=== PATIENT | male | born 1935 | race Caucasian/White ===

== ENCOUNTER 2021-09-30 17:05 | Inpatient (IN) ==
[2021-09-30] MEDS ORDERED: ONDANSETRON 4 MG/2 ML VIAL IV ONE (17:48)
[2021-09-30] MEDS ORDERED: MORPHINE 2 MG/1 ML SYRINGE IV ONE (17:48)
[2021-09-30] MEDS ORDERED: HYDROmorphone 1 MG/1 ML SYRINGE IV STA (19:14)
[2021-09-30 19:46] LABS: Basophils % 0.2 % (0.0-0.8); Eosinophils # 0.1 10*3/uL (0.0-0.87); Eosinophils % 0.8 % (0.00-10.9); Hematocrit 28.9 VOL% (42.0-52.0); Hemoglobin 9.3 GM/DL (14.0-18.0); Immature Granulocytes % 0.6 %; Immature Granulocytes Absolute 0.05 #; Lymphocytes # 1.4 10*3/uL (1.4-4.0); Lymphocytes % 15.6 % (21.2-54.2); Mean Corpuscular HGB Conc 32.2 GM/DL (32-36); Mean Corpuscular Volume 93.2 FL (87-102); Mean Platelet Volume 9.8 FL (9.6-12.0); Monocytes # 0.7 10*3/uL (0.11-0.8); Monocytes % 7.4 % (1.7-12.7); Neutrophils % 75.4 % (38.7-73.9); Platelet Count 178 T/CUMM (130-400); Red Cell Distribution Width 13.9 % (9.3-17.3); White Blood Count 8.8 T/CUMM (4-12)
[2021-09-30 19:56] LABS: INR 2.8; PT Patient Result 29.2 SECS (10.1-12.1)
[2021-09-30 20:07] LABS: Albumin 3.6 G/DL (3.4-5.0); Bilirubin,Total 0.5 MG/DL (0.20-1.00); Calcium 8.8 MG/DL (8.5-10.1); Osmolality,Calculated 277.5 MOS/KG (273-304); Potassium 3.9 MMOL/L (3.5-5.1); Total Protein 7.3 G/DL (6.4-8.2)
[2021-09-30] MEDS ORDERED: HYDROmorphone 1 MG/1 ML SYRINGE IV PRN (20:21)
[2021-09-30] MEDS ORDERED: NALOXONE 0.4 MG/ML VIAL IV PRN (20:21)
[2021-09-30] MEDS ORDERED: ONDANSETRON 4 MG/2 ML VIAL IV PRN (20:21)
[2021-09-30] MEDS: DOCUSATE SODIUM 100 MG CAPSULE PO SCH (23:34)
[2021-09-30] MEDS: MORPHINE 2 MG/1 ML SYRINGE IV PRN (23:35)
[2021-09-30] MEDS: SODIUM CHLORIDE 0.9% 1,000 ML IV SCH (23:35)
[2021-10-01 05:03] LABS: Basophils % 0.3 % (0.0-0.8); Eosinophils # 0.2 10*3/uL (0.0-0.87); Eosinophils % 2.7 % (0.00-10.9); Hematocrit 26.6 VOL% (42.0-52.0); Hemoglobin 8.6 GM/DL (14.0-18.0); Immature Granulocytes % 0.4 %; Immature Granulocytes Absolute 0.03 #; Lymphocytes # 1.5 10*3/uL (1.4-4.0); Lymphocytes % 19.9 % (21.2-54.2); Mean Corpuscular HGB Conc 32.3 GM/DL (32-36); Mean Platelet Volume 9.8 FL (9.6-12.0); Monocytes # 0.8 10*3/uL (0.11-0.8); Monocytes % 10.2 % (1.7-12.7); Neutrophils % 66.5 % (38.7-73.9); Platelet Count 161 T/CUMM (130-400); Red Blood Count 2.86 MC/CUMM (3.8-5.5); Red Cell Distribution Width 13.8 % (9.3-17.3); White Blood Count 7.3 T/CUMM (4-12)
[2021-10-01 05:24] LABS: Albumin 3.1 G/DL (3.4-5.0); Bilirubin,Total 0.5 MG/DL (0.20-1.00); Calcium 8.1 MG/DL (8.5-10.1); Osmolality,Calculated 278.4 MOS/KG (273-304); Total Protein 6.6 G/DL (6.4-8.2)
[2021-10-01] MEDS: MORPHINE 2 MG/1 ML SYRINGE IV PRN (05:45)
[2021-10-01] MEDS ORDERED: VANCOMYCIN INJ 1,000 MG in SODIUM CHLORIDE 0.9% 250 ML IV ONE (06:00)
[2021-10-01 06:46] LABS: PT Patient Result 30.8 SECS (10.1-12.1)
[2021-10-01] MEDS ORDERED: GLUCAGON 1 MG VIAL IM PRN (07:13)
[2021-10-01] MEDS ORDERED: PHYTONADIONE 10 MG/1 ML AMP SUBCUT ONE (08:00)
[2021-10-01] MEDS: CYANOCOBALAMIN 500 MCG TABLET PO SCH (08:47)
[2021-10-01] MEDS: hydroCHLOROthiazide 25 MG TABLET PO SCH (08:48)
[2021-10-01] MEDS: LOSARTAN 50 MG TABLET PO SCH (08:48)
[2021-10-01] MEDS: PANTOPRAZOLE 40 MG TABLET PO SCH (08:48)
[2021-10-01] MEDS: DOCUSATE SODIUM 100 MG CAPSULE PO SCH ×2 (08:48→21:34)
[2021-10-01] MEDS: FERROUS SULFATE 325 MG TABLET PO SCH (08:48)
[2021-10-01] MEDS: INSULIN GLARGINE 100 UNIT/ML SUBCUT SCH ×2 (08:50→21:35)
[2021-10-01] MEDS: SODIUM CHLORIDE 0.9% 1,000 ML IV SCH ×3 (08:53→18:20)
[2021-10-01] MEDS: GLIMEPIRIDE 4 MG TABLET PO SCH (09:24)
[2021-10-01] MEDS: INSULIN LISPRO 100 UNIT/ML SUBCUT SCH ×4 (09:24→21:35)
[2021-10-01] MEDS: PIOGLITAZONE 15 MG TABLET PO SCH (09:26)
[2021-10-01] MEDS: HYDROmorphone 1 MG/1 ML SYRINGE IV PRN ×2 (10:43→16:25)
[2021-10-01] MEDS: FINASTERIDE 5 MG TABLET PO SCH (21:34)
[2021-10-01] MEDS: FAMOTIDINE 20 MG TABLET PO SCH (21:34)
[2021-10-01] MEDS: TAMSULOSIN 0.4 MG CAPSULE PO SCH (21:35)
[2021-10-01] MEDS: SIMVASTATIN 10 MG TABLET PO SCH (21:35)
[2021-10-02 04:52] LABS: Basophils % 0.2 % (0.0-0.8); Eosinophils % 0.2 % (0.00-10.9); Hematocrit 27.7 VOL% (42.0-52.0); Immature Granulocytes % 0.4 %; Immature Granulocytes Absolute 0.04 #; Lymphocytes # 2.1 10*3/uL (1.4-4.0); Lymphocytes % 20.1 % (21.2-54.2); Mean Corpuscular HGB Conc 32.5 GM/DL (32-36); Mean Corpuscular Volume 92.6 FL (87-102); Mean Platelet Volume 9.6 FL (9.6-12.0); Monocytes # 1.1 10*3/uL (0.11-0.8); Monocytes % 10.5 % (1.7-12.7); Neutrophils % 68.6 % (38.7-73.9); Platelet Count 168 T/CUMM (130-400); Red Blood Count 2.99 MC/CUMM (3.8-5.5); White Blood Count 10.4 T/CUMM (4-12)
[2021-10-02 05:03] LABS: INR 2.1; PT Patient Result 21.8 SECS (10.1-12.1)
[2021-10-02 05:04] LABS: Calcium 8.3 MG/DL (8.5-10.1); Osmolality,Calculated 274.2 MOS/KG (273-304); Potassium 3.7 MMOL/L (3.5-5.1)
[2021-10-02] MEDS: SODIUM CHLORIDE 0.9% 1,000 ML IV SCH ×2 (05:41→15:15)
[2021-10-02] MEDS ORDERED: ceFAZolin 2,000 MG/50 ML DUPLEX IV ONE (06:00)
[2021-10-02] MEDS ORDERED: FUROSEMIDE 20 MG/2 ML VIAL IV PRN (06:29)
[2021-10-02] MEDS: INSULIN LISPRO 100 UNIT/ML SUBCUT SCH ×4 (07:53→21:47)
[2021-10-02] MEDS ORDERED: ETOMIDATE 40 MG/20 ML VIAL IV ONE (11:17)
[2021-10-02] MEDS ORDERED: ONDANSETRON 4 MG/2 ML VIAL ONE ×2 (11:17→11:18)
[2021-10-02] MEDS ORDERED: fentaNYL 100 MCG/2 ML VIAL ONE (11:17)
[2021-10-02] MEDS ORDERED: TRANEXAMIC ACID 1,000 MG/10 ML VIAL ONE (11:17)
[2021-10-02] MEDS ORDERED: LIDOCAINE 2% 5 ML VIAL ONE (11:17)
[2021-10-02] MEDS ORDERED: SEVOFLURANE 1 UNIT/15 MINUTE INH ONE ×4 (11:17→13:23)
[2021-10-02] MEDS ORDERED: ROCURONIUM 50 MG/5 ML VIAL IV ONE (11:18)
[2021-10-02] MEDS ORDERED: BUPIVACAINE MPF 0.25% 30 ML VIAL ONE (11:22)
[2021-10-02] MEDS ORDERED: DEXAMETHASONE 4 MG/1 ML VIAL ONE (11:22)
[2021-10-02] MEDS ORDERED: LIDOCAINE 1% 5 ML VIAL ONE (11:22)
[2021-10-02] MEDS: PIOGLITAZONE 15 MG TABLET PO SCH (11:57)
[2021-10-02] MEDS: DOCUSATE SODIUM 100 MG CAPSULE PO SCH ×2 (11:57→21:46)
[2021-10-02] MEDS: GLIMEPIRIDE 4 MG TABLET PO SCH (11:57)
[2021-10-02] MEDS: hydroCHLOROthiazide 25 MG TABLET PO SCH (11:57)
[2021-10-02] MEDS: FERROUS SULFATE 325 MG TABLET PO SCH (11:57)
[2021-10-02] MEDS: LOSARTAN 50 MG TABLET PO SCH (11:57)
[2021-10-02] MEDS: INSULIN GLARGINE 100 UNIT/ML SUBCUT SCH ×2 (11:58→21:47)
[2021-10-02] MEDS: CYANOCOBALAMIN 500 MCG TABLET PO SCH (11:58)
[2021-10-02] MEDS: PANTOPRAZOLE 40 MG TABLET PO SCH (11:58)
[2021-10-02] MEDS ORDERED: MAGNESIUM HYDROXIDE SUSP 30 ML UDCUP PO PRN (12:11)
[2021-10-02] MEDS ORDERED: BACITRACIN OINT 0.9 GM PACK TOP ONE ×2 (12:46→13:02)
[2021-10-02] MEDS ORDERED: PHENYLEPHRINE 1 MG/10 ML SYRINGE IV ONE (12:55)
[2021-10-02] MEDS ORDERED: MORPHINE 2 MG/1 ML SYRINGE IV PRN (14:49)
[2021-10-02] MEDS: HALOPERIDOL 5 MG/ML AMP IM PRN (14:59)
[2021-10-02] MEDS: ceFAZolin 2,000 MG/50 ML DUPLEX IV SCH (18:15)
[2021-10-02] MEDS: TAMSULOSIN 0.4 MG CAPSULE PO SCH (21:46)
[2021-10-02] MEDS: FAMOTIDINE 20 MG TABLET PO SCH (21:46)
[2021-10-02] MEDS: FINASTERIDE 5 MG TABLET PO SCH (21:46)
[2021-10-02] MEDS: SIMVASTATIN 10 MG TABLET PO SCH (21:47)
[2021-10-03] MEDS: ceFAZolin 2,000 MG/50 ML DUPLEX IV SCH (01:07)
[2021-10-03] MEDS: SODIUM CHLORIDE 0.9% 1,000 ML IV SCH ×2 (01:12→14:02)
[2021-10-03 05:27] LABS: Basophils % 0.1 % (0.0-0.8); Hematocrit 25.2 VOL% (42.0-52.0); Hemoglobin 8.3 GM/DL (14.0-18.0); Immature Granulocytes % 0.7 %; Immature Granulocytes Absolute 0.07 #; Lymphocytes # 1.3 10*3/uL (1.4-4.0); Lymphocytes % 12.5 % (21.2-54.2); Mean Corpuscular HGB Conc 32.9 GM/DL (32-36); Mean Corpuscular Volume 92.3 FL (87-102); Mean Platelet Volume 10.2 FL (9.6-12.0); Monocytes # 1.1 10*3/uL (0.11-0.8); Monocytes % 10.6 % (1.7-12.7); Neutrophils % 76.1 % (38.7-73.9); Platelet Count 155 T/CUMM (130-400); Red Blood Count 2.73 MC/CUMM (3.8-5.5); Red Cell Distribution Width 14.3 % (9.3-17.3); White Blood Count 10.1 T/CUMM (4-12)
[2021-10-03 05:34] LABS: INR 1.4; PT Patient Result 14.7 SECS (10.1-12.1)
[2021-10-03 05:52] LABS: Calcium 8.3 MG/DL (8.5-10.1); Osmolality,Calculated 279.1 MOS/KG (273-304); Potassium 3.6 MMOL/L (3.5-5.1)
[2021-10-03] MEDS: INSULIN LISPRO 100 UNIT/ML SUBCUT SCH ×4 (09:04→20:50)
[2021-10-03] MEDS: hydroCHLOROthiazide 25 MG TABLET PO SCH (09:33)
[2021-10-03] MEDS: GLIMEPIRIDE 4 MG TABLET PO SCH (09:33)
[2021-10-03] MEDS: WARFARIN 7.5 MG TABLET PO SCH (09:33)
[2021-10-03] MEDS: PANTOPRAZOLE 40 MG TABLET PO SCH (09:33)
[2021-10-03] MEDS: FERROUS SULFATE 325 MG TABLET PO SCH (09:33)
[2021-10-03] MEDS: PIOGLITAZONE 15 MG TABLET PO SCH (09:33)
[2021-10-03] MEDS: CYANOCOBALAMIN 500 MCG TABLET PO SCH (09:33)
[2021-10-03] MEDS: INSULIN GLARGINE 100 UNIT/ML SUBCUT SCH ×2 (09:34→20:51)
[2021-10-03] MEDS: DOCUSATE SODIUM 100 MG CAPSULE PO SCH ×2 (09:34→20:49)
[2021-10-03] MEDS: HALOPERIDOL 5 MG/ML AMP IM PRN ×2 (10:30→22:57)
[2021-10-03] MEDS: LOSARTAN 50 MG TABLET PO SCH (11:47)
[2021-10-03] MEDS ORDERED: TUBERCULIN SKIN TEST 0.1 ML SYRINGE INTRADERM ONE (13:00)
[2021-10-03] MEDS: ACETAMINOPHEN 325 MG TABLET PO PRN (16:55)
[2021-10-03] MEDS: FINASTERIDE 5 MG TABLET PO SCH (20:49)
[2021-10-03] MEDS: FAMOTIDINE 20 MG TABLET PO SCH (20:49)
[2021-10-03] MEDS: SIMVASTATIN 10 MG TABLET PO SCH (20:49)
[2021-10-03] MEDS: TAMSULOSIN 0.4 MG CAPSULE PO SCH (20:49)
[2021-10-04] MEDS: SODIUM CHLORIDE 0.9% 1,000 ML IV SCH (00:50)
[2021-10-04 06:49] LABS: Basophils % 0.1 % (0.0-0.8); Hemoglobin 7.9 GM/DL (14.0-18.0); Immature Granulocytes % 0.6 %; Immature Granulocytes Absolute 0.05 #; Lymphocytes # 0.9 10*3/uL (1.4-4.0); Lymphocytes % 10.2 % (21.2-54.2); Mean Corpuscular HGB Conc 32.9 GM/DL (32-36); Mean Corpuscular Volume 92.3 FL (87-102); Mean Platelet Volume 9.8 FL (9.6-12.0); Monocytes # 0.9 10*3/uL (0.11-0.8); Monocytes % 10.7 % (1.7-12.7); Neutrophils % 78.4 % (38.7-73.9); Platelet Count 161 T/CUMM (130-400); Red Cell Distribution Width 14.4 % (9.3-17.3); White Blood Count 8.8 T/CUMM (4-12)
[2021-10-04 07:05] LABS: Calcium 7.9 MG/DL (8.5-10.1); Osmolality,Calculated 287.8 MOS/KG (273-304); Potassium 3.4 MMOL/L (3.5-5.1)
[2021-10-04 07:38] LABS: INR 1.2
[2021-10-04] MEDS: INSULIN LISPRO 100 UNIT/ML SUBCUT SCH ×4 (07:42→21:43)
[2021-10-04] MEDS: FERROUS SULFATE 325 MG TABLET PO SCH (08:43)
[2021-10-04] MEDS: PIOGLITAZONE 15 MG TABLET PO SCH (08:43)
[2021-10-04] MEDS: DOCUSATE SODIUM 100 MG CAPSULE PO SCH ×2 (08:43→21:43)
[2021-10-04] MEDS: GLIMEPIRIDE 4 MG TABLET PO SCH (08:43)
[2021-10-04] MEDS: CYANOCOBALAMIN 500 MCG TABLET PO SCH (08:43)
[2021-10-04] MEDS: LOSARTAN 50 MG TABLET PO SCH (08:43)
[2021-10-04] MEDS: hydroCHLOROthiazide 25 MG TABLET PO SCH (08:43)
[2021-10-04] MEDS: PANTOPRAZOLE 40 MG TABLET PO SCH (08:44)
[2021-10-04] MEDS: INSULIN GLARGINE 100 UNIT/ML SUBCUT SCH ×2 (08:44→21:43)
[2021-10-04] MEDS: WARFARIN 7.5 MG TABLET PO SCH (10:04)
[2021-10-04] MEDS: ACETAMINOPHEN 325 MG TABLET PO PRN (17:36)
[2021-10-04] MEDS: FINASTERIDE 5 MG TABLET PO SCH (21:43)
[2021-10-04] MEDS: SIMVASTATIN 10 MG TABLET PO SCH (21:43)
[2021-10-04] MEDS: FAMOTIDINE 20 MG TABLET PO SCH (21:43)
[2021-10-04] MEDS: TAMSULOSIN 0.4 MG CAPSULE PO SCH (21:43)
[2021-10-05 05:28] LABS: Basophils % 0.1 % (0.0-0.8); Eosinophils % 0.1 % (0.00-10.9); Hematocrit 23.8 VOL% (42.0-52.0); Hemoglobin 7.8 GM/DL (14.0-18.0); Immature Granulocytes % 0.4 %; Immature Granulocytes Absolute 0.03 #; Lymphocytes # 1.2 10*3/uL (1.4-4.0); Lymphocytes % 14.5 % (21.2-54.2); Mean Corpuscular HGB Conc 32.8 GM/DL (32-36); Mean Corpuscular Volume 92.2 FL (87-102); Mean Platelet Volume 9.9 FL (9.6-12.0); Monocytes # 0.9 10*3/uL (0.11-0.8); Monocytes % 11.2 % (1.7-12.7); Neutrophils % 73.7 % (38.7-73.9); Platelet Count 186 T/CUMM (130-400); Red Blood Count 2.58 MC/CUMM (3.8-5.5); Red Cell Distribution Width 14.5 % (9.3-17.3); White Blood Count 8.4 T/CUMM (4-12)
[2021-10-05 06:10] LABS: PT Patient Result 12.5 SECS (10.1-12.1)
[2021-10-05 06:11] LABS: INR 1.1
[2021-10-05] MEDS: ALBUTEROL/IPRATROPIUM 3 ML NEB RESP TX SCH (06:20)
[2021-10-05] MEDS: methylPREDNISolone SOD SUC 40 MG/1 ML VIAL IV SCH ×3 (06:21→21:22)
[2021-10-05] MEDS: FUROSEMIDE 40 MG/4 ML VIAL IV SCH (06:22)
[2021-10-05] MEDS: AZITHROMYCIN INJ 500 MG in SODIUM CHLORIDE 0.9% 250 ML IV SCH (06:23)
[2021-10-05 06:32] LABS: Calcium 8.2 MG/DL (8.5-10.1); Potassium 3.3 MMOL/L (3.5-5.1)
[2021-10-05] MEDS ORDERED: SODIUM CHLORIDE 0.9% 1,000 ML IV PRN ×2 (07:18→07:27)
[2021-10-05] MEDS: SODIUM CHLORIDE 0.9% 1,000 ML IV SCH ×4 (07:49→22:11)
[2021-10-05] MEDS: INSULIN LISPRO 100 UNIT/ML SUBCUT SCH ×4 (07:50→21:28)
[2021-10-05] MEDS: PIOGLITAZONE 15 MG TABLET PO SCH (09:54)
[2021-10-05] MEDS: hydroCHLOROthiazide 25 MG TABLET PO SCH (09:55)
[2021-10-05] MEDS: CYANOCOBALAMIN 500 MCG TABLET PO SCH (09:55)
[2021-10-05] MEDS: GLIMEPIRIDE 4 MG TABLET PO SCH (09:55)
[2021-10-05] MEDS: PANTOPRAZOLE 40 MG TABLET PO SCH (09:55)
[2021-10-05] MEDS: FERROUS SULFATE 325 MG TABLET PO SCH (09:55)
[2021-10-05] MEDS: WARFARIN 7.5 MG TABLET PO SCH (09:56)
[2021-10-05] MEDS: DOCUSATE SODIUM 100 MG CAPSULE PO SCH ×3 (09:56→23:27)
[2021-10-05] MEDS: LOSARTAN 50 MG TABLET PO SCH (09:56)
[2021-10-05] MEDS: INSULIN GLARGINE 100 UNIT/ML SUBCUT SCH ×2 (09:58→21:29)
[2021-10-05] MEDS ORDERED: traMADol 50 MG TABLET PO PRN (11:46)
[2021-10-05] MEDS: FINASTERIDE 5 MG TABLET PO SCH ×2 (21:22→23:29)
[2021-10-05] MEDS: FAMOTIDINE 20 MG TABLET PO SCH ×2 (21:22→23:28)
[2021-10-05] MEDS: TAMSULOSIN 0.4 MG CAPSULE PO SCH ×2 (21:22→23:28)
[2021-10-05] MEDS: SIMVASTATIN 10 MG TABLET PO SCH ×2 (21:22→23:29)
[2021-10-05] MEDS: cefTRIAXone 1,000 MG in SODIUM CHLORIDE 0.9% 100 ML IV SCH (21:26)
[2021-10-06] MEDS: ALBUTEROL/IPRATROPIUM 3 ML NEB RESP TX SCH ×6 (01:41→19:16)
[2021-10-06] MEDS: methylPREDNISolone SOD SUC 40 MG/1 ML VIAL IV SCH ×3 (06:08→20:50)
[2021-10-06] MEDS: AZITHROMYCIN INJ 500 MG in SODIUM CHLORIDE 0.9% 250 ML IV SCH (06:11)
[2021-10-06 07:08] LABS: Hematocrit 30.5 VOL% (42.0-52.0); Immature Granulocytes % 0.5 %; Immature Granulocytes Absolute 0.04 #; Lymphocytes # 0.7 10*3/uL (1.4-4.0); Lymphocytes % 8.3 % (21.2-54.2); Mean Corpuscular HGB Conc 32.5 GM/DL (32-36); Mean Platelet Volume 9.9 FL (9.6-12.0); Monocytes # 0.4 10*3/uL (0.11-0.8); Monocytes % 4.8 % (1.7-12.7); Neutrophils % 86.4 % (38.7-73.9); Platelet Count 196 T/CUMM (130-400); Red Cell Distribution Width 15.7 % (9.3-17.3)
[2021-10-06 07:09] LABS: INR 1.3; PT Patient Result 13.9 SECS (10.1-12.1)
[2021-10-06 07:17] LABS: Calcium 8.3 MG/DL (8.5-10.1); Osmolality,Calculated 301.5 MOS/KG (273-304); Potassium 3.2 MMOL/L (3.5-5.1)
[2021-10-06 07:28] LABS: Red Blood Count 3.39 MC/CUMM (3.8-5.5)
[2021-10-06 07:29] LABS: Hemoglobin 9.9 GM/DL (14.0-18.0)
[2021-10-06] MEDS: INSULIN LISPRO 100 UNIT/ML SUBCUT SCH ×4 (09:29→20:49)
[2021-10-06] MEDS: FUROSEMIDE 40 MG/4 ML VIAL IV SCH (09:30)
[2021-10-06] MEDS: INSULIN GLARGINE 100 UNIT/ML SUBCUT SCH ×2 (09:30→20:51)
[2021-10-06] MEDS: GLIMEPIRIDE 4 MG TABLET PO SCH (09:30)
[2021-10-06] MEDS: hydroCHLOROthiazide 25 MG TABLET PO SCH (09:31)
[2021-10-06] MEDS: LOSARTAN 50 MG TABLET PO SCH (09:31)
[2021-10-06] MEDS: WARFARIN 7.5 MG TABLET PO SCH (09:31)
[2021-10-06] MEDS: FERROUS SULFATE 325 MG TABLET PO SCH (09:31)
[2021-10-06] MEDS: CYANOCOBALAMIN 500 MCG TABLET PO SCH (09:31)
[2021-10-06] MEDS: PIOGLITAZONE 15 MG TABLET PO SCH (09:31)
[2021-10-06] MEDS: DOCUSATE SODIUM 100 MG CAPSULE PO SCH ×2 (09:32→20:49)
[2021-10-06] MEDS: PANTOPRAZOLE 40 MG TABLET PO SCH (09:32)
[2021-10-06] MEDS: SODIUM CHLORIDE 0.9% 1,000 ML IV SCH ×2 (11:07→21:49)
[2021-10-06] MEDS ORDERED: POTASSIUM CHLORIDE 20 MEQ TABLET PO PRN (12:42)
[2021-10-06] MEDS ORDERED: POTASSIUM CHLORIDE 20 MEQ TABLET PO ONE (13:00)
[2021-10-06] MEDS: FAMOTIDINE 20 MG TABLET PO SCH (20:49)
[2021-10-06] MEDS: FINASTERIDE 5 MG TABLET PO SCH (20:49)
[2021-10-06] MEDS: TAMSULOSIN 0.4 MG CAPSULE PO SCH (20:49)
[2021-10-06] MEDS: SIMVASTATIN 10 MG TABLET PO SCH (20:49)
[2021-10-06] MEDS: cefTRIAXone 1,000 MG in SODIUM CHLORIDE 0.9% 100 ML IV SCH (20:53)
[2021-10-07] MEDS: ALBUTEROL/IPRATROPIUM 3 ML NEB RESP TX SCH ×4 (00:08→19:40)
[2021-10-07] MEDS: methylPREDNISolone SOD SUC 40 MG/1 ML VIAL IV SCH ×4 (00:25→21:50)
[2021-10-07 06:16] LABS: Basophils % 0.1 % (0.0-0.8); Hematocrit 31.9 VOL% (42.0-52.0); Hemoglobin 10.6 GM/DL (14.0-18.0); Immature Granulocytes % 1.6 %; Immature Granulocytes Absolute 0.16 #; Lymphocytes # 0.7 10*3/uL (1.4-4.0); Lymphocytes % 7.4 % (21.2-54.2); Mean Corpuscular HGB Conc 33.2 GM/DL (32-36); Mean Corpuscular Volume 89.4 FL (87-102); Mean Platelet Volume 9.6 FL (9.6-12.0); Monocytes # 0.5 10*3/uL (0.11-0.8); Monocytes % 5.3 % (1.7-12.7); Neutrophils % 85.6 % (38.7-73.9); Platelet Count 222 T/CUMM (130-400); Red Blood Count 3.57 MC/CUMM (3.8-5.5); Red Cell Distribution Width 15.7 % (9.3-17.3); White Blood Count 10.1 T/CUMM (4-12)
[2021-10-07 06:36] LABS: Calcium 8.6 MG/DL (8.5-10.1); Osmolality,Calculated 309.3 MOS/KG (273-304); Potassium 3.4 MMOL/L (3.5-5.1)
[2021-10-07] MEDS: AZITHROMYCIN INJ 500 MG in SODIUM CHLORIDE 0.9% 250 ML IV SCH (06:41)
[2021-10-07] MEDS: INSULIN LISPRO 100 UNIT/ML SUBCUT SCH ×4 (08:08→21:49)
[2021-10-07] MEDS: FUROSEMIDE 40 MG/4 ML VIAL IV SCH (08:12)
[2021-10-07] MEDS: LOSARTAN 50 MG TABLET PO SCH (08:12)
[2021-10-07] MEDS: CYANOCOBALAMIN 500 MCG TABLET PO SCH (08:12)
[2021-10-07] MEDS: hydroCHLOROthiazide 25 MG TABLET PO SCH (08:12)
[2021-10-07] MEDS: POTASSIUM CHLORIDE 20 MEQ TABLET PO PRN ×3 (08:13→14:37)
[2021-10-07] MEDS: FERROUS SULFATE 325 MG TABLET PO SCH (08:14)
[2021-10-07] MEDS: PANTOPRAZOLE 40 MG TABLET PO SCH (08:14)
[2021-10-07] MEDS: DOCUSATE SODIUM 100 MG CAPSULE PO SCH ×2 (08:14→20:31)
[2021-10-07] MEDS: WARFARIN 7.5 MG TABLET PO SCH (08:14)
[2021-10-07] MEDS: PIOGLITAZONE 15 MG TABLET PO SCH (08:15)
[2021-10-07] MEDS: GLIMEPIRIDE 4 MG TABLET PO SCH (08:16)
[2021-10-07] MEDS: INSULIN GLARGINE 100 UNIT/ML SUBCUT SCH ×2 (10:00→20:32)
[2021-10-07] MEDS: FINASTERIDE 5 MG TABLET PO SCH (20:30)
[2021-10-07] MEDS: SIMVASTATIN 10 MG TABLET PO SCH (20:30)
[2021-10-07] MEDS: FAMOTIDINE 20 MG TABLET PO SCH (20:31)
[2021-10-07] MEDS: cefTRIAXone 1,000 MG in SODIUM CHLORIDE 0.9% 100 ML IV SCH (20:32)
[2021-10-07] MEDS: TAMSULOSIN 0.4 MG CAPSULE PO SCH (20:45)
[2021-10-07] MEDS ORDERED: HALOPERIDOL 5 MG/ML AMP IM SCH (21:00)
[2021-10-07] MEDS: SODIUM CHLORIDE 0.9% 1,000 ML IV SCH ×2 (21:59→23:25)
[2021-10-08] MEDS: ALBUTEROL/IPRATROPIUM 3 ML NEB RESP TX SCH ×4 (00:10→19:48)
[2021-10-08 04:45] LABS: Basophils % 0.2 % (0.0-0.8); Hematocrit 33.2 VOL% (42.0-52.0); Hemoglobin 10.7 GM/DL (14.0-18.0); Immature Granulocytes % 1.7 %; Immature Granulocytes Absolute 0.23 #; Lymphocytes # 1.6 10*3/uL (1.4-4.0); Lymphocytes % 11.7 % (21.2-54.2); Mean Corpuscular HGB Conc 32.2 GM/DL (32-36); Mean Corpuscular Volume 90.7 FL (87-102); Mean Platelet Volume 9.4 FL (9.6-12.0); Monocytes # 1.3 10*3/uL (0.11-0.8); Monocytes % 9.1 % (1.7-12.7); Neutrophils % 77.3 % (38.7-73.9); Platelet Count 259 T/CUMM (130-400); Red Blood Count 3.66 MC/CUMM (3.8-5.5); Red Cell Distribution Width 15.7 % (9.3-17.3); White Blood Count 13.9 T/CUMM (4-12)
[2021-10-08 04:56] LABS: INR 2.4; PT Patient Result 24.7 SECS (10.1-12.1)
[2021-10-08 05:10] LABS: Calcium 9.1 MG/DL (8.5-10.1); Osmolality,Calculated 304.1 MOS/KG (273-304); Potassium 3.8 MMOL/L (3.5-5.1)
[2021-10-08] MEDS: AZITHROMYCIN INJ 500 MG in SODIUM CHLORIDE 0.9% 250 ML IV SCH (06:19)
[2021-10-08] MEDS: methylPREDNISolone SOD SUC 40 MG/1 ML VIAL IV SCH ×2 (06:19→16:01)
[2021-10-08] MEDS: DEXTROSE 10% 250 ML BAG IV PRN (07:00)
[2021-10-08] MEDS: INSULIN LISPRO 100 UNIT/ML SUBCUT SCH ×4 (07:54→21:21)
[2021-10-08] MEDS: FUROSEMIDE 40 MG/4 ML VIAL IV SCH (09:37)
[2021-10-08] MEDS: GLIMEPIRIDE 4 MG TABLET PO SCH (10:01)
[2021-10-08] MEDS: PIOGLITAZONE 15 MG TABLET PO SCH (10:02)
[2021-10-08] MEDS: DOCUSATE SODIUM 100 MG CAPSULE PO SCH ×2 (10:02→21:20)
[2021-10-08] MEDS: FERROUS SULFATE 325 MG TABLET PO SCH (10:02)
[2021-10-08] MEDS: hydroCHLOROthiazide 25 MG TABLET PO SCH (10:03)
[2021-10-08] MEDS: LOSARTAN 50 MG TABLET PO SCH (10:03)
[2021-10-08] MEDS: INSULIN GLARGINE 100 UNIT/ML SUBCUT SCH ×2 (10:03→21:21)
[2021-10-08] MEDS: WARFARIN 7.5 MG TABLET PO SCH (10:03)
[2021-10-08] MEDS: CYANOCOBALAMIN 500 MCG TABLET PO SCH (10:04)
[2021-10-08] MEDS: PANTOPRAZOLE 40 MG TABLET PO SCH (10:04)
[2021-10-08] MEDS: HALOPERIDOL 5 MG/ML AMP IM SCH (21:18)
[2021-10-08] MEDS: TAMSULOSIN 0.4 MG CAPSULE PO SCH (21:21)
[2021-10-08] MEDS: FAMOTIDINE 20 MG TABLET PO SCH (21:21)
[2021-10-08] MEDS: FINASTERIDE 5 MG TABLET PO SCH (21:22)
[2021-10-08] MEDS: SIMVASTATIN 10 MG TABLET PO SCH (21:22)
[2021-10-08] MEDS: SODIUM CHLORIDE 0.9% 1,000 ML IV SCH (23:05)
[2021-10-09] MEDS: methylPREDNISolone SOD SUC 40 MG/1 ML VIAL IV SCH ×3 (01:12→17:15)
[2021-10-09] MEDS: cefTRIAXone 1,000 MG in SODIUM CHLORIDE 0.9% 100 ML IV SCH (01:13)
[2021-10-09] MEDS: SODIUM CHLORIDE 0.9% 1,000 ML IV SCH ×2 (01:13→17:14)
[2021-10-09] MEDS: ALBUTEROL/IPRATROPIUM 3 ML NEB RESP TX SCH ×4 (01:40→19:39)
[2021-10-09 05:40] LABS: Basophils % 0.1 % (0.0-0.8); Hematocrit 32.8 VOL% (42.0-52.0); Hemoglobin 10.8 GM/DL (14.0-18.0); Immature Granulocytes % 2.1 %; Immature Granulocytes Absolute 0.23 #; Lymphocytes % 8.8 % (21.2-54.2); Mean Corpuscular HGB Conc 32.9 GM/DL (32-36); Mean Corpuscular Volume 90.4 FL (87-102); Mean Platelet Volume 9.3 FL (9.6-12.0); Monocytes # 0.7 10*3/uL (0.11-0.8); Monocytes % 5.9 % (1.7-12.7); Neutrophils % 83.1 % (38.7-73.9); Platelet Count 238 T/CUMM (130-400); Red Blood Count 3.63 MC/CUMM (3.8-5.5); Red Cell Distribution Width 15.9 % (9.3-17.3)
[2021-10-09 05:53] LABS: Osmolality,Calculated 304.8 MOS/KG (273-304); Potassium 3.8 MMOL/L (3.5-5.1)
[2021-10-09 06:01] LABS: INR 2.1; PT Patient Result 22.5 SECS (10.1-12.1)
[2021-10-09] MEDS: INSULIN LISPRO 100 UNIT/ML SUBCUT SCH ×4 (08:02→22:34)
[2021-10-09] MEDS: CYANOCOBALAMIN 500 MCG TABLET PO SCH (08:15)
[2021-10-09] MEDS: hydroCHLOROthiazide 25 MG TABLET PO SCH (08:16)
[2021-10-09] MEDS: INSULIN GLARGINE 100 UNIT/ML SUBCUT SCH ×2 (08:16→22:34)
[2021-10-09] MEDS: PANTOPRAZOLE 40 MG TABLET PO SCH (08:16)
[2021-10-09] MEDS: DOCUSATE SODIUM 100 MG CAPSULE PO SCH ×2 (08:17→22:24)
[2021-10-09] MEDS: LOSARTAN 50 MG TABLET PO SCH (08:17)
[2021-10-09] MEDS: GLIMEPIRIDE 4 MG TABLET PO SCH (08:17)
[2021-10-09] MEDS: FERROUS SULFATE 325 MG TABLET PO SCH (08:17)
[2021-10-09] MEDS: PIOGLITAZONE 15 MG TABLET PO SCH (08:17)
[2021-10-09] MEDS: FUROSEMIDE 40 MG/4 ML VIAL IV SCH (09:34)
[2021-10-09] MEDS: HALOPERIDOL 5 MG/ML AMP IM SCH (22:24)
[2021-10-09] MEDS: TAMSULOSIN 0.4 MG CAPSULE PO SCH (22:24)
[2021-10-09] MEDS: FAMOTIDINE 20 MG TABLET PO SCH (22:35)
[2021-10-09] MEDS: FINASTERIDE 5 MG TABLET PO SCH (22:35)
[2021-10-09] MEDS: SIMVASTATIN 10 MG TABLET PO SCH (22:35)
[2021-10-10] MEDS: ALBUTEROL/IPRATROPIUM 3 ML NEB RESP TX SCH ×4 (00:10→20:18)
[2021-10-10] MEDS: methylPREDNISolone SOD SUC 40 MG/1 ML VIAL IV SCH ×3 (01:37→18:01)
[2021-10-10] MEDS: cefTRIAXone 1,000 MG in SODIUM CHLORIDE 0.9% 100 ML IV SCH (01:37)
[2021-10-10 05:06] LABS: Basophils % 0.1 % (0.0-0.8); Hemoglobin 9.9 GM/DL (14.0-18.0); Immature Granulocytes % 1.4 %; Immature Granulocytes Absolute 0.12 #; Lymphocytes # 0.8 10*3/uL (1.4-4.0); Lymphocytes % 8.9 % (21.2-54.2); Mean Corpuscular HGB Conc 31.9 GM/DL (32-36); Mean Corpuscular Volume 91.7 FL (87-102); Mean Platelet Volume 9.1 FL (9.6-12.0); Monocytes # 0.6 10*3/uL (0.11-0.8); Monocytes % 6.8 % (1.7-12.7); Neutrophils % 82.8 % (38.7-73.9); Platelet Count 226 T/CUMM (130-400); Red Blood Count 3.38 MC/CUMM (3.8-5.5); Red Cell Distribution Width 15.9 % (9.3-17.3); White Blood Count 8.9 T/CUMM (4-12)
[2021-10-10 05:15] LABS: INR 2.3; PT Patient Result 23.6 SECS (10.1-12.1)
[2021-10-10 05:20] LABS: Calcium 8.5 MG/DL (8.5-10.1); Osmolality,Calculated 314.1 MOS/KG (273-304); Potassium 3.9 MMOL/L (3.5-5.1)
[2021-10-10] MEDS: INSULIN LISPRO 100 UNIT/ML SUBCUT SCH ×4 (07:31→20:04)
[2021-10-10] MEDS: FUROSEMIDE 40 MG/4 ML VIAL IV SCH (09:53)
[2021-10-10] MEDS: SODIUM CHLORIDE 0.9% 1,000 ML IV SCH ×3 (09:53→19:43)
[2021-10-10] MEDS: LOSARTAN 50 MG TABLET PO SCH (10:17)
[2021-10-10] MEDS: DOCUSATE SODIUM 100 MG CAPSULE PO SCH ×2 (10:17→20:04)
[2021-10-10] MEDS: GLIMEPIRIDE 4 MG TABLET PO SCH (10:17)
[2021-10-10] MEDS: FERROUS SULFATE 325 MG TABLET PO SCH (10:17)
[2021-10-10] MEDS: PIOGLITAZONE 15 MG TABLET PO SCH (10:17)
[2021-10-10] MEDS: PANTOPRAZOLE 40 MG TABLET PO SCH (10:18)
[2021-10-10] MEDS: hydroCHLOROthiazide 25 MG TABLET PO SCH (10:18)
[2021-10-10] MEDS: INSULIN GLARGINE 100 UNIT/ML SUBCUT SCH ×3 (10:18→20:05)
[2021-10-10] MEDS: CYANOCOBALAMIN 500 MCG TABLET PO SCH (10:18)
[2021-10-10] MEDS ORDERED: DEXTROSE 10% 1,000 ML IV PRN (17:00)
[2021-10-10] MEDS: DEXTROSE IV SCH (17:11)
[2021-10-10] MEDS: AMINO ACIDS IV SCH (17:11)
[2021-10-10] MEDS: LACTATED RINGERS 1,000 ML IV SCH (19:43)
[2021-10-10] MEDS: HALOPERIDOL 5 MG/ML AMP IM SCH ×2 (19:57→20:05)
[2021-10-10] MEDS: TAMSULOSIN 0.4 MG CAPSULE PO SCH (20:04)
[2021-10-10] MEDS: FAMOTIDINE 20 MG TABLET PO SCH (20:04)
[2021-10-10] MEDS: FINASTERIDE 5 MG TABLET PO SCH (20:04)
[2021-10-10] MEDS: SIMVASTATIN 10 MG TABLET PO SCH (20:04)
[2021-10-11] MEDS: ALBUTEROL/IPRATROPIUM 3 ML NEB RESP TX SCH ×4 (00:46→19:05)
[2021-10-11] MEDS: methylPREDNISolone SOD SUC 40 MG/1 ML VIAL IV SCH ×3 (01:39→16:15)
[2021-10-11] MEDS: cefTRIAXone 1,000 MG in SODIUM CHLORIDE 0.9% 100 ML IV SCH (01:40)
[2021-10-11 05:37] LABS: Basophils % 0.2 % (0.0-0.8); Hematocrit 34.9 VOL% (42.0-52.0); Immature Granulocytes % 1.8 %; Immature Granulocytes Absolute 0.24 #; Lymphocytes % 7.2 % (21.2-54.2); Mean Corpuscular HGB Conc 31.5 GM/DL (32-36); Mean Corpuscular Volume 92.1 FL (87-102); Mean Platelet Volume 9.6 FL (9.6-12.0); Monocytes # 0.8 10*3/uL (0.11-0.8); Monocytes % 5.6 % (1.7-12.7); Neutrophils % 85.2 % (38.7-73.9); Platelet Count 242 T/CUMM (130-400); Red Blood Count 3.79 MC/CUMM (3.8-5.5); Red Cell Distribution Width 15.9 % (9.3-17.3); White Blood Count 13.5 T/CUMM (4-12)
[2021-10-11 05:42] LABS: Calcium 8.7 MG/DL (8.5-10.1); Osmolality,Calculated 315.6 MOS/KG (273-304); Potassium 3.4 MMOL/L (3.5-5.1)
[2021-10-11] MEDS: INSULIN LISPRO 100 UNIT/ML SUBCUT SCH ×3 (09:40→17:16)
[2021-10-11] MEDS: INSULIN GLARGINE 100 UNIT/ML SUBCUT SCH ×2 (09:40→21:47)
[2021-10-11] MEDS: FUROSEMIDE 40 MG/4 ML VIAL IV SCH (09:41)
[2021-10-11] MEDS: FERROUS SULFATE 325 MG TABLET PO SCH (09:41)
[2021-10-11] MEDS: GLIMEPIRIDE 4 MG TABLET PO SCH (09:41)
[2021-10-11] MEDS: PIOGLITAZONE 15 MG TABLET PO SCH (09:42)
[2021-10-11] MEDS: PANTOPRAZOLE 40 MG TABLET PO SCH (09:42)
[2021-10-11] MEDS: DOCUSATE SODIUM 100 MG CAPSULE PO SCH ×2 (09:42→20:29)
[2021-10-11] MEDS: hydroCHLOROthiazide 25 MG TABLET PO SCH (09:42)
[2021-10-11] MEDS: LOSARTAN 50 MG TABLET PO SCH (09:42)
[2021-10-11] MEDS: CYANOCOBALAMIN 500 MCG TABLET PO SCH (09:42)
[2021-10-11] MEDS: LACTATED RINGERS 1,000 ML IV SCH (09:42)
[2021-10-11] MEDS ORDERED: [UNRECOGNIZED DRUG - OTHER] IV SCH (11:30)
[2021-10-11] MEDS ORDERED: MULTIVITAMIN IV SCH (11:30)
[2021-10-11] MEDS ORDERED: ELECTROLYTE IV SCH (11:30)
[2021-10-11] MEDS: DEXTROSE IV SCH (14:01)
[2021-10-11] MEDS: AMINO ACIDS IV SCH (14:01)
[2021-10-11] MEDS: ELECTROLYTE IV SCH (16:15)
[2021-10-11] MEDS: [UNRECOGNIZED DRUG - OTHER] IV SCH (16:15)
[2021-10-11] MEDS: MULTIVITAMIN IV SCH (16:15)
[2021-10-11] MEDS: DEXTROSE 10% 250 ML BAG IV PRN (16:33)
[2021-10-11] MEDS: TAMSULOSIN 0.4 MG CAPSULE PO SCH (20:29)
[2021-10-11] MEDS: FAMOTIDINE 20 MG TABLET PO SCH (20:29)
[2021-10-11] MEDS: SIMVASTATIN 10 MG TABLET PO SCH (20:29)
[2021-10-11] MEDS: FINASTERIDE 5 MG TABLET PO SCH (20:29)
[2021-10-11] MEDS: HALOPERIDOL 5 MG/ML AMP IM SCH (21:47)
[2021-10-12] MEDS ORDERED: DIAZEPAM 10 MG/2 ML SYRINGE IM PRN (00:56)
[2021-10-12] MEDS: INSULIN LISPRO 100 UNIT/ML SUBCUT SCH ×4 (01:15→16:59)
[2021-10-12] MEDS: ALBUTEROL/IPRATROPIUM 3 ML NEB RESP TX SCH ×4 (02:20→19:50)
[2021-10-12] MEDS: methylPREDNISolone SOD SUC 40 MG/1 ML VIAL IV SCH ×3 (05:09→16:58)
[2021-10-12] MEDS: cefTRIAXone 1,000 MG in SODIUM CHLORIDE 0.9% 100 ML IV SCH (05:09)
[2021-10-12] MEDS: INSULIN GLARGINE 100 UNIT/ML SUBCUT SCH ×2 (10:08→21:04)
[2021-10-12] MEDS: GLIMEPIRIDE 4 MG TABLET PO SCH (10:09)
[2021-10-12] MEDS: FERROUS SULFATE 325 MG TABLET PO SCH (10:09)
[2021-10-12] MEDS: PIOGLITAZONE 15 MG TABLET PO SCH (10:09)
[2021-10-12] MEDS: hydroCHLOROthiazide 25 MG TABLET PO SCH (10:09)
[2021-10-12] MEDS: LACTATED RINGERS 1,000 ML IV SCH (10:09)
[2021-10-12] MEDS: LOSARTAN 50 MG TABLET PO SCH (10:09)
[2021-10-12] MEDS: FUROSEMIDE 40 MG/4 ML VIAL IV SCH (10:09)
[2021-10-12] MEDS: DOCUSATE SODIUM 100 MG CAPSULE PO SCH ×2 (10:09→20:22)
[2021-10-12] MEDS: PANTOPRAZOLE 40 MG TABLET PO SCH (10:10)
[2021-10-12] MEDS: CYANOCOBALAMIN 500 MCG TABLET PO SCH (10:10)
[2021-10-12] MEDS: ELECTROLYTE IV SCH (14:19)
[2021-10-12] MEDS: MULTIVITAMIN IV SCH (14:19)
[2021-10-12] MEDS: [UNRECOGNIZED DRUG - OTHER] IV SCH (14:19)
[2021-10-12] MEDS: SIMVASTATIN 10 MG TABLET PO SCH (20:22)
[2021-10-12] MEDS: FINASTERIDE 5 MG TABLET PO SCH (20:22)
[2021-10-12] MEDS: FAMOTIDINE 20 MG TABLET PO SCH (20:22)
[2021-10-12] MEDS: TAMSULOSIN 0.4 MG CAPSULE PO SCH (20:22)
[2021-10-12] MEDS: HALOPERIDOL 5 MG/ML AMP IM SCH (21:03)
[2021-10-13] MEDS: cefTRIAXone 1,000 MG in SODIUM CHLORIDE 0.9% 100 ML IV SCH (00:15)
[2021-10-13] MEDS: methylPREDNISolone SOD SUC 40 MG/1 ML VIAL IV SCH ×3 (00:16→17:23)
[2021-10-13] MEDS: INSULIN LISPRO 100 UNIT/ML SUBCUT SCH ×4 (00:24→17:20)
[2021-10-13] MEDS: ALBUTEROL/IPRATROPIUM 3 ML NEB RESP TX SCH ×4 (00:40→19:39)
[2021-10-13 05:42] LABS: INR 1.4; PT Patient Result 15.5 SECS (10.1-12.1)
[2021-10-13 06:14] LABS: Phosphorous 2.6 MG/DL (2.5-4.9)
[2021-10-13] MEDS: GLIMEPIRIDE 4 MG TABLET PO SCH (09:11)
[2021-10-13] MEDS: INSULIN GLARGINE 100 UNIT/ML SUBCUT SCH ×2 (09:12→20:47)
[2021-10-13] MEDS: LOSARTAN 50 MG TABLET PO SCH (09:12)
[2021-10-13] MEDS: DOCUSATE SODIUM 100 MG CAPSULE PO SCH ×2 (09:12→21:47)
[2021-10-13] MEDS: hydroCHLOROthiazide 25 MG TABLET PO SCH (09:12)
[2021-10-13] MEDS: PIOGLITAZONE 15 MG TABLET PO SCH (09:12)
[2021-10-13] MEDS: FERROUS SULFATE 325 MG TABLET PO SCH (09:12)
[2021-10-13] MEDS: PANTOPRAZOLE 40 MG TABLET PO SCH (09:13)
[2021-10-13] MEDS: CYANOCOBALAMIN 500 MCG TABLET PO SCH (09:13)
[2021-10-13] MEDS: FUROSEMIDE 40 MG/4 ML VIAL IV SCH (10:03)
[2021-10-13] MEDS: LACTATED RINGERS 1,000 ML IV SCH (11:44)
[2021-10-13] MEDS ORDERED: propofoL 200 MG/20 ML VIAL IV ONE (11:48)
[2021-10-13] MEDS ORDERED: LIDOCAINE 2% 5 ML VIAL ONE (11:48)
[2021-10-13] MEDS ORDERED: ceFAZolin 1,000 MG VIAL ONE (11:49)
[2021-10-13] MEDS ORDERED: SODIUM CHLORIDE 0.9% 100 ML IV ONE (11:50)
[2021-10-13] MEDS ORDERED: ZINC OXIDE PASTE 113 GM TUBE TOP PRN (14:51)
[2021-10-13] MEDS: ELECTROLYTE IV SCH (14:56)
[2021-10-13] MEDS: [UNRECOGNIZED DRUG - OTHER] IV SCH (14:56)
[2021-10-13] MEDS: MULTIVITAMIN IV SCH (14:56)
[2021-10-13] MEDS ORDERED: HALOPERIDOL 5 MG/ML AMP IM SCH (21:00)
[2021-10-13] MEDS: FAMOTIDINE 20 MG TABLET PO SCH (21:47)
[2021-10-13] MEDS: TAMSULOSIN 0.4 MG CAPSULE PO SCH (21:47)
[2021-10-13] MEDS: FINASTERIDE 5 MG TABLET PO SCH (21:48)
[2021-10-13] MEDS: SIMVASTATIN 10 MG TABLET PO SCH (21:48)
[2021-10-14] MEDS: ALBUTEROL/IPRATROPIUM 3 ML NEB RESP TX SCH ×5 (00:01→19:05)
[2021-10-14] MEDS: INSULIN LISPRO 100 UNIT/ML SUBCUT SCH ×4 (01:16→17:59)
[2021-10-14] MEDS: methylPREDNISolone SOD SUC 40 MG/1 ML VIAL IV SCH ×3 (01:20→17:59)
[2021-10-14 05:00] LABS: Basophils % 0.1 % (0.0-0.8); Hematocrit 34.7 VOL% (42.0-52.0); Hemoglobin 10.9 GM/DL (14.0-18.0); Immature Granulocytes % 1.9 %; Immature Granulocytes Absolute 0.25 #; Lymphocytes # 0.7 10*3/uL (1.4-4.0); Lymphocytes % 5.4 % (21.2-54.2); Mean Corpuscular HGB Conc 31.4 GM/DL (32-36); Mean Corpuscular Volume 93.3 FL (87-102); Mean Platelet Volume 10.2 FL (9.6-12.0); Monocytes # 0.6 10*3/uL (0.11-0.8); Monocytes % 4.5 % (1.7-12.7); Neutrophils % 88.1 % (38.7-73.9); Platelet Count 170 T/CUMM (130-400); Red Blood Count 3.72 MC/CUMM (3.8-5.5); Red Cell Distribution Width 15.9 % (9.3-17.3); White Blood Count 13.4 T/CUMM (4-12)
[2021-10-14 05:20] LABS: Calcium 8.9 MG/DL (8.5-10.1)
[2021-10-14] MEDS: LACTATED RINGERS 1,000 ML IV SCH (08:29)
[2021-10-14] MEDS: FERROUS SULFATE 325 MG TABLET PO SCH (08:29)
[2021-10-14] MEDS: GLIMEPIRIDE 4 MG TABLET PO SCH (08:29)
[2021-10-14] MEDS: INSULIN GLARGINE 100 UNIT/ML SUBCUT SCH ×2 (08:30→21:34)
[2021-10-14] MEDS: hydroCHLOROthiazide 25 MG TABLET PO SCH (08:30)
[2021-10-14] MEDS: PANTOPRAZOLE 40 MG TABLET PO SCH (08:30)
[2021-10-14] MEDS: DOCUSATE SODIUM 100 MG CAPSULE PO SCH ×2 (08:30→21:18)
[2021-10-14] MEDS: CYANOCOBALAMIN 500 MCG TABLET PO SCH (08:30)
[2021-10-14] MEDS: PIOGLITAZONE 15 MG TABLET PO SCH (08:30)
[2021-10-14] MEDS: LOSARTAN 50 MG TABLET PO SCH (08:30)
[2021-10-14] MEDS: FUROSEMIDE 40 MG/4 ML VIAL IV SCH (09:00)
[2021-10-14] MEDS ORDERED: METHYLENE BLUE 10 ML VIAL IV ONE (09:03)
[2021-10-14] MEDS ORDERED: propofoL 200 MG/20 ML VIAL IV ONE (09:08)
[2021-10-14] MEDS ORDERED: LIDOCAINE 2% 5 ML VIAL ONE (09:08)
[2021-10-14] MEDS ORDERED: fentaNYL 100 MCG/2 ML VIAL ONE (09:09)
[2021-10-14] MEDS ORDERED: ONDANSETRON 4 MG/2 ML VIAL ONE ×2 (09:09→11:05)
[2021-10-14] MEDS ORDERED: ROCURONIUM 50 MG/5 ML VIAL IV ONE (09:09)
[2021-10-14] MEDS ORDERED: LACTATED RINGERS 1,000 ML IV SCH (09:30)
[2021-10-14] MEDS ORDERED: DEXAMETHASONE 4 MG/1 ML VIAL ONE (11:05)
[2021-10-14] MEDS ORDERED: SEVOFLURANE 1 UNIT/15 MINUTE INH ONE (11:05)
[2021-10-14] MEDS ORDERED: NEOSTIGMINE 10 MG/10 ML VIAL ONE (11:06)
[2021-10-14] MEDS ORDERED: GLYCOPYRROLATE 0.4 MG/2 ML VIAL ONE (11:06)
[2021-10-14] MEDS ORDERED: TISSUE ADHESIVE 1 EACH APPLICATOR TOP ONE (11:14)
[2021-10-14 12:08] LABS: Hyaline Casts,Urine 21 /LPF (0-3); Mucus,Urine Occasional /LPF (Occasional); RBC,Urine 27 /HPF (0-4); Squamous Epithelial Cell,Urine Occasional /HPF (0-10)
[2021-10-14 12:10] LABS: Urine Appearance Clear (Clear); Urine Color Yellow (Yellow)
[2021-10-14 12:11] LABS: Bilirubin,Urine Negative (Negative); Blood, Urine Moderate mg/dL (Negative); Glucose,Urine (UA) Negative (Negative); Ketones,Urine Negative (Negative); Nitrite,Urine Negative (Negative); Protein,Urine Negative (Negative); Urine Urobilinogen < 2.0 eU/dL (<2.0)
[2021-10-14] MEDS: [UNRECOGNIZED DRUG - OTHER] IV SCH (14:33)
[2021-10-14] MEDS: MULTIVITAMIN IV SCH (14:33)
[2021-10-14] MEDS: ELECTROLYTE IV SCH (14:33)
[2021-10-14] MEDS: FINASTERIDE 5 MG TABLET PO SCH (21:18)
[2021-10-14] MEDS: TAMSULOSIN 0.4 MG CAPSULE PO SCH (21:18)
[2021-10-14] MEDS: FAMOTIDINE 20 MG TABLET PO SCH (21:18)
[2021-10-14] MEDS: SIMVASTATIN 10 MG TABLET PO SCH (21:19)
[2021-10-15] MEDS: ALBUTEROL/IPRATROPIUM 3 ML NEB RESP TX SCH ×4 (00:15→19:30)
[2021-10-15] MEDS: INSULIN LISPRO 100 UNIT/ML SUBCUT SCH ×4 (00:39→17:04)
[2021-10-15] MEDS: methylPREDNISolone SOD SUC 40 MG/1 ML VIAL IV SCH ×3 (02:17→17:55)
[2021-10-15 05:58] LABS: Basophils % 0.2 % (0.0-0.8); Hematocrit 32.9 VOL% (42.0-52.0); Hemoglobin 10.4 GM/DL (14.0-18.0); Immature Granulocytes % 1.3 %; Lymphocytes # 1.3 10*3/uL (1.4-4.0); Lymphocytes % 8.3 % (21.2-54.2); Mean Corpuscular HGB Conc 31.6 GM/DL (32-36); Mean Corpuscular Volume 93.2 FL (87-102); Mean Platelet Volume 10.6 FL (9.6-12.0); Monocytes # 0.8 10*3/uL (0.11-0.8); Monocytes % 5.3 % (1.7-12.7); Neutrophils % 84.9 % (38.7-73.9); Platelet Count 145 T/CUMM (130-400); Red Blood Count 3.53 MC/CUMM (3.8-5.5); Red Cell Distribution Width 15.7 % (9.3-17.3)
[2021-10-15 06:13] LABS: Calcium 8.5 MG/DL (8.5-10.1); Potassium 4.1 MMOL/L (3.5-5.1)
[2021-10-15] MEDS: FUROSEMIDE 40 MG/4 ML VIAL IV SCH (09:04)
[2021-10-15] MEDS: INSULIN GLARGINE 100 UNIT/ML SUBCUT SCH ×2 (09:05→21:06)
[2021-10-15] MEDS: FERROUS SULFATE 325 MG TABLET PO SCH (09:09)
[2021-10-15] MEDS: LACTATED RINGERS 1,000 ML IV SCH (09:09)
[2021-10-15] MEDS: LOSARTAN 50 MG TABLET PO SCH (09:09)
[2021-10-15] MEDS: PIOGLITAZONE 15 MG TABLET PO SCH (09:09)
[2021-10-15] MEDS: PANTOPRAZOLE 40 MG TABLET PO SCH (09:09)
[2021-10-15] MEDS: hydroCHLOROthiazide 25 MG TABLET PO SCH (09:09)
[2021-10-15] MEDS: GLIMEPIRIDE 4 MG TABLET PO SCH (09:09)
[2021-10-15] MEDS: DOCUSATE SODIUM 100 MG CAPSULE PO SCH ×2 (09:09→21:07)
[2021-10-15] MEDS: CYANOCOBALAMIN 500 MCG TABLET PO SCH (09:10)
[2021-10-15] MEDS: ELECTROLYTE IV SCH (17:09)
[2021-10-15] MEDS: [UNRECOGNIZED DRUG - OTHER] IV SCH (17:09)
[2021-10-15] MEDS: MULTIVITAMIN IV SCH (17:09)
[2021-10-15] MEDS: FAMOTIDINE 20 MG TABLET PO SCH (21:07)
[2021-10-15] MEDS: TAMSULOSIN 0.4 MG CAPSULE PO SCH (21:07)
[2021-10-15] MEDS: FINASTERIDE 5 MG TABLET PO SCH (21:08)
[2021-10-15] MEDS: SIMVASTATIN 10 MG TABLET PO SCH (21:08)
[2021-10-16] MEDS: INSULIN LISPRO 100 UNIT/ML SUBCUT SCH ×4 (00:23→17:07)
[2021-10-16] MEDS: methylPREDNISolone SOD SUC 40 MG/1 ML VIAL IV SCH ×3 (00:24→17:42)
[2021-10-16] MEDS: ALBUTEROL/IPRATROPIUM 3 ML NEB RESP TX SCH ×4 (00:40→19:09)
[2021-10-16] MEDS: hydroCHLOROthiazide 25 MG TABLET PO SCH (09:50)
[2021-10-16] MEDS: LOSARTAN 50 MG TABLET PO SCH (09:50)
[2021-10-16] MEDS: DOCUSATE SODIUM 100 MG CAPSULE PO SCH ×2 (09:50→22:03)
[2021-10-16] MEDS: GLIMEPIRIDE 4 MG TABLET PO SCH (09:50)
[2021-10-16] MEDS: PIOGLITAZONE 15 MG TABLET PO SCH (09:50)
[2021-10-16] MEDS: FERROUS SULFATE 325 MG TABLET PO SCH (09:50)
[2021-10-16] MEDS: CYANOCOBALAMIN 500 MCG TABLET PO SCH (09:51)
[2021-10-16] MEDS: PANTOPRAZOLE 40 MG TABLET PO SCH (09:51)
[2021-10-16] MEDS: INSULIN GLARGINE 100 UNIT/ML SUBCUT SCH (10:00)
[2021-10-16] MEDS: FUROSEMIDE 40 MG/4 ML VIAL IV SCH (10:05)
[2021-10-16] MEDS: LACTATED RINGERS 1,000 ML IV SCH (13:37)
[2021-10-16 14:36] LABS: INR 1.2; PT Patient Result 12.7 SECS (10.1-12.1)
[2021-10-16] MEDS: TAMSULOSIN 0.4 MG CAPSULE PO SCH (22:03)
[2021-10-16] MEDS: FINASTERIDE 5 MG TABLET PO SCH (22:04)
[2021-10-16] MEDS: FAMOTIDINE 20 MG TABLET PO SCH (22:04)
[2021-10-16] MEDS: SIMVASTATIN 10 MG TABLET PO SCH (22:04)
[2021-10-17] MEDS: ALBUTEROL/IPRATROPIUM 3 ML NEB RESP TX SCH ×2 (00:01→07:25)
[2021-10-17] MEDS: INSULIN LISPRO 100 UNIT/ML SUBCUT SCH ×2 (00:09→06:38)
[2021-10-17] MEDS: INSULIN GLARGINE 100 UNIT/ML SUBCUT SCH ×2 (00:10→09:15)
[2021-10-17] MEDS ORDERED: methylPREDNISolone SOD SUC 40 MG/1 ML VIAL IV SCH (05:00)
[2021-10-17 05:30] LABS: Basophils % 0.2 % (0.0-0.8); Hematocrit 33.8 VOL% (42.0-52.0); Hemoglobin 10.7 GM/DL (14.0-18.0); Immature Granulocytes % 1.3 %; Immature Granulocytes Absolute 0.28 #; Lymphocytes # 2.1 10*3/uL (1.4-4.0); Lymphocytes % 9.8 % (21.2-54.2); Mean Corpuscular HGB Conc 31.7 GM/DL (32-36); Mean Corpuscular Volume 92.3 FL (87-102); Mean Platelet Volume 11.3 FL (9.6-12.0); Monocytes # 1.6 10*3/uL (0.11-0.8); Monocytes % 7.7 % (1.7-12.7); Platelet Count 148 T/CUMM (130-400); Red Blood Count 3.66 MC/CUMM (3.8-5.5); Red Cell Distribution Width 15.7 % (9.3-17.3); White Blood Count 21.2 T/CUMM (4-12)
[2021-10-17 05:38] LABS: INR 1.1; PT Patient Result 12.5 SECS (10.1-12.1)
[2021-10-17 05:58] LABS: Calcium 8.8 MG/DL (8.5-10.1); Osmolality,Calculated 310.7 MOS/KG (273-304)
[2021-10-17 06:59] LABS: Lymphocytes 11 % (20-55); Platelet Estimate Adequate; Total Cells Counted 100
[2021-10-17 07:49] VITALS: BP 132/60
[2021-10-17] MEDS ORDERED: WARFARIN 7.5 MG TABLET PO SCH (08:00)
[2021-10-17] MEDS: FUROSEMIDE 40 MG/4 ML VIAL IV SCH (09:17)
[2021-10-17] MEDS: PIOGLITAZONE 15 MG TABLET PO SCH (09:17)
[2021-10-17] MEDS: hydroCHLOROthiazide 25 MG TABLET PO SCH (09:17)
[2021-10-17] MEDS: FERROUS SULFATE 325 MG TABLET PO SCH (09:18)
[2021-10-17] MEDS: LOSARTAN 50 MG TABLET PO SCH (09:18)
[2021-10-17] MEDS: GLIMEPIRIDE 4 MG TABLET PO SCH (09:18)
[2021-10-17] MEDS: CYANOCOBALAMIN 500 MCG TABLET PO SCH (09:18)
[2021-10-17] MEDS: PANTOPRAZOLE 40 MG TABLET PO SCH (09:18)
[2021-10-17] MEDS: LACTATED RINGERS 1,000 ML IV SCH (09:19)
[2021-10-17] MEDS: DOCUSATE SODIUM 100 MG CAPSULE PO SCH (09:19)
== END 2021-10-17 11:42 | disposition swing bed (61) | DRG 521 ==
LOC: N.ED 17:05 → N.EDINP 20:21 → N.3E 21:43
PROVIDERS: ADMIT Internal Medicine; ATTEND Internal Medicine

== ENCOUNTER 2021-10-24 15:48 | Inpatient (IN) ==
[2021-10-24 17:21] LABS: Basophils % 0.1 % (0.0-0.8); Eosinophils # 0.2 10*3/uL (0.0-0.87); Hematocrit 30.3 VOL% (42.0-52.0); Hemoglobin 9.5 GM/DL (14.0-18.0); Immature Granulocytes % 0.8 %; Immature Granulocytes Absolute 0.12 #; Lymphocytes # 2.9 10*3/uL (1.4-4.0); Lymphocytes % 18.6 % (21.2-54.2); Mean Corpuscular HGB Conc 31.4 GM/DL (32-36); Mean Corpuscular Volume 92.7 FL (87-102); Mean Platelet Volume 12.2 FL (9.6-12.0); Monocytes # 0.7 10*3/uL (0.11-0.8); Monocytes % 4.4 % (1.7-12.7); Neutrophils % 75.1 % (38.7-73.9); Platelet Count 130 T/CUMM (130-400); Red Blood Count 3.27 MC/CUMM (3.8-5.5); White Blood Count 15.8 T/CUMM (4-12)
[2021-10-24] MEDS ORDERED: cefTRIAXone 1,000 MG in SODIUM CHLORIDE 0.9% 100 ML IV STA (17:32)
[2021-10-24 17:40] LABS: Bacteria,Urine Moderate /HPF (Few); Bilirubin,Urine Negative (Negative); Blood, Urine Large mg/dL (Negative); Glucose,Urine (UA) Negative (Negative); Ketones,Urine Negative (Negative); Mucus,Urine Occasional /LPF (Occasional); Nitrite,Urine Negative (Negative); Protein,Urine 100 mg/dL (Negative); RBC,Urine 969 /HPF (0-4); Squamous Epithelial Cell,Urine Occasional /HPF (0-10); Urine Appearance Slightly Cloudy (Clear); Urine Color Yellow (Yellow)
[2021-10-24 17:42] LABS: Calcium 7.6 MG/DL (8.5-10.1); Osmolality,Calculated 314.7 MOS/KG (273-304); Potassium 3.2 MMOL/L (3.5-5.1); Total Protein 5.7 G/DL (6.4-8.2)
[2021-10-24] MEDS ORDERED: DEXTROSE 50% 25 GM/50 ML SYRINGE IV ONE (17:48)
[2021-10-24] MEDS ORDERED: SODIUM CHLORIDE 0.9% 1,000 ML IV STA (17:51)
[2021-10-24] MEDS ORDERED: DEXTROSE 50% 25 GM/50 ML VIAL IV STA (17:52)
[2021-10-24] MEDS ORDERED: DEXTROSE 50% 25 GM/50 ML SYRINGE IV STA (17:55)
[2021-10-24] MEDS ORDERED: ONDANSETRON 4 MG/2 ML VIAL IV PRN (18:24)
[2021-10-24] MEDS ORDERED: ACETAMINOPHEN 325 MG TABLET PO PRN (18:24)
[2021-10-24] MEDS ORDERED: SODIUM CHLORIDE 0.9% 1,000 ML IV SCH (18:30)
[2021-10-24] MEDS ORDERED: DEXTROSE 5% NACL 0.45% 1,000 ML IV SCH (18:30)
[2021-10-24] MEDS ORDERED: AUTO INJECTOR SUBCUT PRN (19:45)
[2021-10-24] MEDS ORDERED: BISACODYL 10 MG SUPP RECTAL PRN (19:45)
[2021-10-24] MEDS ORDERED: ALUMINUM/MAGNES/SIMETH MAX STR 30 ML UDCUP PEG PRN (19:45)
[2021-10-24] MEDS ORDERED: MAGNESIUM HYDROXIDE SUSP 30 ML UDCUP PEG PRN (19:45)
[2021-10-24] MEDS ORDERED: GLUCAGON 1 MG/0.2 ML SUBCUT PRN (19:45)
[2021-10-24] MEDS ORDERED: NYSTATIN POWDER 15 GM BOTTLE TOP SCH (21:00)
[2021-10-24] MEDS ORDERED: DEXTROSE 10% 250 ML BAG IV PRN (21:09)
[2021-10-24] MEDS ORDERED: GLUCAGON 1 MG VIAL IM PRN (21:09)
[2021-10-24] MEDS ORDERED: MINERAL OIL/PETROLATUM OPH OINT 3.5 GM TUBE BOTH EYES PRN (22:19)
[2021-10-24] MEDS ORDERED: guaiFENesin 200 MG/10 ML UDCUP PO PRN (22:19)
[2021-10-24] MEDS ORDERED: ZINC OXIDE PASTE 113 GM TUBE TOP SCH (23:00)
[2021-10-24] MEDS ORDERED: ALBUTEROL 2.5 MG/3 ML NEB RESP TX PRN (23:00)
[2021-10-24] MEDS: DEXTROSE 5% NACL 0.45% 1,000 ML IV SCH (23:30)
[2021-10-25] MEDS: ALBUTEROL/IPRATROPIUM 3 ML NEB RESP TX SCH ×4 (00:31→23:42)
[2021-10-25] MEDS: ACETYLCYSTEINE 20% 800 MG/4 ML VIAL RESP TX SCH ×4 (00:31→23:43)
[2021-10-25] MEDS: SIMVASTATIN 10 MG TABLET PO SCH ×2 (00:33→21:21)
[2021-10-25] MEDS: PIPERACILLIN/TAZOBACTAM 3,375 MG in SODIUM CHLORIDE 0.9% 100 ML IV SCH ×4 (00:33→21:20)
[2021-10-25] MEDS: FINASTERIDE 5 MG TABLET PO SCH ×2 (00:33→21:21)
[2021-10-25] MEDS: FAMOTIDINE 20 MG TABLET PEG SCH ×2 (00:33→21:21)
[2021-10-25] MEDS: DESITIN 4OZ/NYSTATIN 15 GRAM MIXTURE PASTE TOP SCH ×3 (00:34→21:22)
[2021-10-25] MEDS: DEXAMETHASONE 4 MG/1 ML VIAL IV SCH ×3 (00:34→21:21)
[2021-10-25] MEDS: DEXTROSE 10% 250 ML BAG IV PRN (03:10)
[2021-10-25] MEDS ORDERED: DEXTROSE 5% NACL 0.45% 1,000 ML IV SCH (04:45)
[2021-10-25] MEDS: INSULIN REGULAR 100 UNIT/ML SUBCUT SCH ×5 (05:48→21:21)
[2021-10-25 06:44] LABS: Albumin 1.5 G/DL (3.4-5.0); Bilirubin,Total 0.8 MG/DL (0.20-1.00); Osmolality,Calculated 312.3 MOS/KG (273-304); Potassium 3.7 MMOL/L (3.5-5.1); Total Protein 4.7 G/DL (6.4-8.2)
[2021-10-25 07:59] LABS: Basophils % 0.1 % (0.0-0.8); Hematocrit 27.8 VOL% (42.0-52.0); Hemoglobin 8.7 GM/DL (14.0-18.0); Immature Granulocytes % 0.7 %; Immature Granulocytes Absolute 0.08 #; Lymphocytes # 0.8 10*3/uL (1.4-4.0); Lymphocytes % 7.3 % (21.2-54.2); Mean Corpuscular HGB Conc 31.3 GM/DL (32-36); Mean Corpuscular Volume 94.2 FL (87-102); Mean Platelet Volume 11.5 FL (9.6-12.0); Monocytes # 0.2 10*3/uL (0.11-0.8); Monocytes % 1.5 % (1.7-12.7); Neutrophils % 90.4 % (38.7-73.9); Platelet Count 113 T/CUMM (130-400); Red Blood Count 2.95 MC/CUMM (3.8-5.5); Red Cell Distribution Width 16.1 % (9.3-17.3); White Blood Count 11.4 T/CUMM (4-12)
[2021-10-25] MEDS ORDERED: COSYNTROPIN 0.25 MG VIAL IV ONE ×2 (08:13)
[2021-10-25 08:22] LABS: Anisocytosis 1+; Band Neutrophils 15 % (0-10); Lymphocytes 6 % (20-55); Macrocytosis 1+; Platelet Estimate Adequate; Total Cells Counted 100
[2021-10-25 08:23] LABS: Burr Cells 1+
[2021-10-25] MEDS: DEXTROSE 5% NACL 0.45% 1,000 ML IV SCH (08:30)
[2021-10-25] MEDS: CYANOCOBALAMIN 500 MCG TABLET PEG SCH (08:59)
[2021-10-25] MEDS ORDERED: PANTOPRAZOLE 40 MG VIAL IV SCH (09:00)
[2021-10-25] MEDS ORDERED: cefTRIAXone 1,000 MG in SODIUM CHLORIDE 0.9% 100 ML IV SCH (09:00)
[2021-10-25] MEDS: hydroCHLOROthiazide 25 MG TABLET PO SCH (09:00)
[2021-10-25] MEDS: DOCUSATE SODIUM 100 MG CAPSULE PEG SCH ×2 (09:01→21:21)
[2021-10-25] MEDS ORDERED: DEXAMETHASONE 4 MG/1 ML VIAL IV SCH (14:00)
[2021-10-25] MEDS: LACTATED RINGERS 1,000 ML IV SCH (18:34)
[2021-10-26] MEDS: INSULIN REGULAR 100 UNIT/ML SUBCUT SCH ×6 (00:13→22:27)
[2021-10-26] MEDS ORDERED: HALOPERIDOL 5 MG/ML AMP IM ONE ×2 (01:00→02:30)
[2021-10-26] MEDS: PIPERACILLIN/TAZOBACTAM 3,375 MG in SODIUM CHLORIDE 0.9% 100 ML IV SCH ×3 (05:58→22:58)
[2021-10-26] MEDS: DEXAMETHASONE 4 MG/1 ML VIAL IV SCH (05:59)
[2021-10-26 06:40] LABS: Basophils % 0.2 % (0.0-0.8); Hematocrit 25.8 VOL% (42.0-52.0); Immature Granulocytes % 0.8 %; Immature Granulocytes Absolute 0.09 #; Lymphocytes # 1.2 10*3/uL (1.4-4.0); Lymphocytes % 9.7 % (21.2-54.2); Mean Corpuscular Volume 93.8 FL (87-102); Mean Platelet Volume 11.7 FL (9.6-12.0); Monocytes # 0.5 10*3/uL (0.11-0.8); Monocytes % 3.8 % (1.7-12.7); Neutrophils % 85.5 % (38.7-73.9); Platelet Count 146 T/CUMM (130-400); Red Blood Count 2.75 MC/CUMM (3.8-5.5); Red Cell Distribution Width 15.9 % (9.3-17.3)
[2021-10-26 07:02] LABS: Albumin 1.6 G/DL (3.4-5.0); Bilirubin,Total 1.1 MG/DL (0.20-1.00); Calcium 7.3 MG/DL (8.5-10.1); Osmolality,Calculated 316.7 MOS/KG (273-304); Potassium 3.7 MMOL/L (3.5-5.1); Total Protein 4.8 G/DL (6.4-8.2)
[2021-10-26] MEDS: ACETYLCYSTEINE 20% 800 MG/4 ML VIAL RESP TX SCH ×2 (07:29→15:40)
[2021-10-26] MEDS: ALBUTEROL/IPRATROPIUM 3 ML NEB RESP TX SCH ×2 (07:29→15:40)
[2021-10-26] MEDS: LACTATED RINGERS 1,000 ML IV SCH (08:00)
[2021-10-26] MEDS: hydroCHLOROthiazide 25 MG TABLET PO SCH (08:57)
[2021-10-26] MEDS: DOCUSATE SODIUM 100 MG CAPSULE PEG SCH ×2 (08:57→22:28)
[2021-10-26] MEDS: DESITIN 4OZ/NYSTATIN 15 GRAM MIXTURE PASTE TOP SCH ×2 (11:19→22:28)
[2021-10-26] MEDS: CYANOCOBALAMIN 500 MCG TABLET PEG SCH (11:19)
[2021-10-26] MEDS ORDERED: HALOPERIDOL 5 MG/ML AMP IM PRN (15:12)
[2021-10-26] MEDS: FINASTERIDE 5 MG TABLET PO SCH (22:28)
[2021-10-26] MEDS: FAMOTIDINE 20 MG TABLET PEG SCH (22:28)
[2021-10-26] MEDS: SIMVASTATIN 10 MG TABLET PO SCH (22:28)
[2021-10-27] MEDS: ALBUTEROL/IPRATROPIUM 3 ML NEB RESP TX SCH ×4 (00:07→20:00)
[2021-10-27] MEDS: ACETYLCYSTEINE 20% 800 MG/4 ML VIAL RESP TX SCH ×4 (00:07→20:05)
[2021-10-27] MEDS: INSULIN REGULAR 100 UNIT/ML SUBCUT SCH ×6 (01:26→21:07)
[2021-10-27] MEDS: LACTATED RINGERS 1,000 ML IV SCH (02:28)
[2021-10-27 05:53] LABS: Eosinophils % 0.2 % (0.00-10.9); Hematocrit 26.5 VOL% (42.0-52.0); Hemoglobin 8.4 GM/DL (14.0-18.0); Immature Granulocytes % 0.8 %; Immature Granulocytes Absolute 0.08 #; Lymphocytes % 10.4 % (21.2-54.2); Mean Corpuscular HGB Conc 31.7 GM/DL (32-36); Mean Corpuscular Volume 93.3 FL (87-102); Monocytes # 0.5 10*3/uL (0.11-0.8); Monocytes % 5.3 % (1.7-12.7); Neutrophils % 83.3 % (38.7-73.9); Platelet Count 173 T/CUMM (130-400); Red Blood Count 2.84 MC/CUMM (3.8-5.5); Red Cell Distribution Width 16.1 % (9.3-17.3); White Blood Count 9.8 T/CUMM (4-12)
[2021-10-27] MEDS: PIPERACILLIN/TAZOBACTAM 3,375 MG in SODIUM CHLORIDE 0.9% 100 ML IV SCH ×3 (05:57→21:56)
[2021-10-27 06:16] LABS: Albumin 1.9 G/DL (3.4-5.0); Bilirubin,Total 1.1 MG/DL (0.20-1.00); Osmolality,Calculated 324.6 MOS/KG (273-304); Potassium 3.9 MMOL/L (3.5-5.1); Total Protein 5.2 G/DL (6.4-8.2)
[2021-10-27] MEDS: DOCUSATE SODIUM 100 MG CAPSULE PEG SCH ×2 (09:29→22:03)
[2021-10-27] MEDS: CYANOCOBALAMIN 500 MCG TABLET PEG SCH (09:29)
[2021-10-27] MEDS: hydroCHLOROthiazide 25 MG TABLET PO SCH (09:29)
[2021-10-27] MEDS: DESITIN 4OZ/NYSTATIN 15 GRAM MIXTURE PASTE TOP SCH ×2 (13:47→22:01)
[2021-10-27] MEDS: SODIUM CHLORIDE 0.45% 1,000 ML IV SCH (13:49)
[2021-10-27] MEDS: CLINDAMYCIN INJ 300 MG/50 ML PREMIX IV SCH (17:39)
[2021-10-27] MEDS: ALBUMIN 25% 25 GM/100 ML VIAL IV SCH (18:24)
[2021-10-27] MEDS: SIMVASTATIN 10 MG TABLET PO SCH (22:01)
[2021-10-27] MEDS: FINASTERIDE 5 MG TABLET PO SCH (22:02)
[2021-10-27] MEDS: FAMOTIDINE 20 MG TABLET PEG SCH (22:02)
[2021-10-28] MEDS: CLINDAMYCIN INJ 300 MG/50 ML PREMIX IV SCH ×3 (01:40→17:52)
[2021-10-28] MEDS: ALBUMIN 25% 25 GM/100 ML VIAL IV SCH ×3 (02:31→18:19)
[2021-10-28] MEDS: INSULIN REGULAR 100 UNIT/ML SUBCUT SCH ×6 (05:53→20:00)
[2021-10-28] MEDS: PIPERACILLIN/TAZOBACTAM 3,375 MG in SODIUM CHLORIDE 0.9% 100 ML IV SCH ×3 (05:54→21:48)
[2021-10-28 06:14] LABS: Basophils % 0.1 % (0.0-0.8); Eosinophils % 0.3 % (0.00-10.9); Hematocrit 24.7 VOL% (42.0-52.0); Hemoglobin 7.7 GM/DL (14.0-18.0); Immature Granulocytes % 1.8 %; Immature Granulocytes Absolute 0.12 #; Lymphocytes # 1.1 10*3/uL (1.4-4.0); Lymphocytes % 15.9 % (21.2-54.2); Mean Corpuscular HGB Conc 31.2 GM/DL (32-36); Mean Corpuscular Volume 93.6 FL (87-102); Mean Platelet Volume 10.9 FL (9.6-12.0); Monocytes # 0.4 10*3/uL (0.11-0.8); Monocytes % 5.9 % (1.7-12.7); Platelet Count 157 T/CUMM (130-400); Red Blood Count 2.64 MC/CUMM (3.8-5.5); Red Cell Distribution Width 16.5 % (9.3-17.3); White Blood Count 6.8 T/CUMM (4-12)
[2021-10-28 06:24] LABS: INR 1.5; PT Patient Result 15.9 SECS (10.1-12.1)
[2021-10-28 06:34] LABS: Calcium 7.7 MG/DL (8.5-10.1); Osmolality,Calculated 329.3 MOS/KG (273-304); Potassium 3.6 MMOL/L (3.5-5.1)
[2021-10-28] MEDS: ALBUTEROL/IPRATROPIUM 3 ML NEB RESP TX SCH ×3 (07:45→22:20)
[2021-10-28] MEDS: ACETYLCYSTEINE 20% 800 MG/4 ML VIAL RESP TX SCH ×3 (07:45→22:20)
[2021-10-28] MEDS ORDERED: LACTATED RINGERS 1,000 ML IV SCH (08:00)
[2021-10-28] MEDS: DOCUSATE SODIUM 100 MG CAPSULE PEG SCH ×2 (09:28→21:49)
[2021-10-28] MEDS: DESITIN 4OZ/NYSTATIN 15 GRAM MIXTURE PASTE TOP SCH ×2 (09:28→22:32)
[2021-10-28] MEDS: CYANOCOBALAMIN 500 MCG TABLET PEG SCH (09:28)
[2021-10-28] MEDS: hydroCHLOROthiazide 25 MG TABLET PO SCH (09:28)
[2021-10-28] MEDS: SODIUM CHLORIDE 0.45% 1,000 ML IV SCH ×2 (10:00)
[2021-10-28] MEDS ORDERED: ETOMIDATE 20 MG/10 ML VIAL IV ONE (13:21)
[2021-10-28] MEDS ORDERED: LIDOCAINE 2% 5 ML VIAL ONE (13:21)
[2021-10-28] MEDS ORDERED: SODIUM CHLORIDE 0.9% 1,000 ML IV PRN (21:11)
[2021-10-28] MEDS: SIMVASTATIN 10 MG TABLET PO SCH (21:49)
[2021-10-28] MEDS: FAMOTIDINE 20 MG TABLET PEG SCH (21:49)
[2021-10-28] MEDS: FINASTERIDE 5 MG TABLET PO SCH (21:49)
[2021-10-29] MEDS: CLINDAMYCIN INJ 300 MG/50 ML PREMIX IV SCH ×3 (01:03→17:13)
[2021-10-29] MEDS: INSULIN REGULAR 100 UNIT/ML SUBCUT SCH ×6 (01:05→23:10)
[2021-10-29] MEDS: ALBUMIN 25% 25 GM/100 ML VIAL IV SCH ×2 (02:13→11:37)
[2021-10-29] MEDS: PIPERACILLIN/TAZOBACTAM 3,375 MG in SODIUM CHLORIDE 0.9% 100 ML IV SCH ×3 (05:01→21:48)
[2021-10-29] MEDS ORDERED: FUROSEMIDE 20 MG/2 ML VIAL IV ONE (05:30)
[2021-10-29] MEDS: ALBUTEROL/IPRATROPIUM 3 ML NEB RESP TX SCH ×3 (07:15→23:54)
[2021-10-29] MEDS: ACETYLCYSTEINE 20% 800 MG/4 ML VIAL RESP TX SCH ×3 (07:15→23:54)
[2021-10-29] MEDS: CYANOCOBALAMIN 500 MCG TABLET PEG SCH (08:58)
[2021-10-29] MEDS: hydroCHLOROthiazide 25 MG TABLET PO SCH (08:58)
[2021-10-29] MEDS: DOCUSATE SODIUM 100 MG CAPSULE PEG SCH ×2 (08:58→21:47)
[2021-10-29] MEDS: DESITIN 4OZ/NYSTATIN 15 GRAM MIXTURE PASTE TOP SCH ×2 (08:59→21:50)
[2021-10-29 14:06] LABS: Basophils % 0.1 % (0.0-0.8); Eosinophils % 0.2 % (0.00-10.9); Hematocrit 30.9 VOL% (42.0-52.0); Hemoglobin 9.6 GM/DL (14.0-18.0); Immature Granulocytes Absolute 0.12 #; Lymphocytes # 1.6 10*3/uL (1.4-4.0); Lymphocytes % 13.1 % (21.2-54.2); Mean Corpuscular HGB Conc 31.1 GM/DL (32-36); Mean Corpuscular Volume 93.6 FL (87-102); Mean Platelet Volume 10.7 FL (9.6-12.0); Monocytes # 0.4 10*3/uL (0.11-0.8); Monocytes % 3.3 % (1.7-12.7); Neutrophils % 82.3 % (38.7-73.9); Platelet Count 143 T/CUMM (130-400); Red Cell Distribution Width 16.9 % (9.3-17.3); White Blood Count 12.4 T/CUMM (4-12)
[2021-10-29 15:31] LABS: Basophils % 0.2 % (0.0-0.8); Eosinophils % 0.2 % (0.00-10.9); Hematocrit 31.1 VOL% (42.0-52.0); Immature Granulocytes % 1.1 %; Immature Granulocytes Absolute 0.13 #; Lymphocytes # 1.6 10*3/uL (1.4-4.0); Lymphocytes % 13.4 % (21.2-54.2); Mean Corpuscular HGB Conc 32.2 GM/DL (32-36); Mean Corpuscular Volume 91.7 FL (87-102); Mean Platelet Volume 10.6 FL (9.6-12.0); Monocytes # 0.4 10*3/uL (0.11-0.8); Monocytes % 3.7 % (1.7-12.7); Neutrophils % 81.4 % (38.7-73.9); Platelet Count 161 T/CUMM (130-400); Red Blood Count 3.39 MC/CUMM (3.8-5.5); Red Cell Distribution Width 16.9 % (9.3-17.3); White Blood Count 11.7 T/CUMM (4-12)
[2021-10-29 15:53] LABS: Albumin 2.9 G/DL (3.4-5.0); Bilirubin,Total 1.2 MG/DL (0.20-1.00); Calcium 8.1 MG/DL (8.5-10.1); Osmolality,Calculated 330.3 MOS/KG (273-304); Potassium 3.1 MMOL/L (3.5-5.1)
[2021-10-29 15:58] LABS: Band Neutrophils 2 % (0-10); Lymphocytes 8 % (20-55); Total Cells Counted 100
[2021-10-29 16:01] LABS: Platelet Estimate Adequate
[2021-10-29] MEDS: INSULIN GLARGINE 100 UNIT/ML SUBCUT SCH (17:13)
[2021-10-29] MEDS ORDERED: POTASSIUM CHLORIDE 20 MEQ TABLET PO ONE (20:25)
[2021-10-29] MEDS ORDERED: INSULIN GLARGINE 100 UNIT/ML SUBCUT SCH (21:00)
[2021-10-29] MEDS ORDERED: POTASSIUM BICARB EFFERVESCENT 20 MEQ TAB.EFF PO ONE (21:30)
[2021-10-29] MEDS: FINASTERIDE 5 MG TABLET PO SCH (21:46)
[2021-10-29] MEDS: FAMOTIDINE 20 MG TABLET PEG SCH (21:47)
[2021-10-30] MEDS: INSULIN REGULAR 100 UNIT/ML SUBCUT SCH ×7 (00:53→20:54)
[2021-10-30] MEDS: CLINDAMYCIN INJ 300 MG/50 ML PREMIX IV SCH ×3 (01:47→16:28)
[2021-10-30] MEDS: SODIUM CHLORIDE 0.45% 1,000 ML IV SCH (02:04)
[2021-10-30] MEDS: LACTATED RINGERS 1,000 ML IV SCH (02:05)
[2021-10-30] MEDS: PIPERACILLIN/TAZOBACTAM 3,375 MG in SODIUM CHLORIDE 0.9% 100 ML IV SCH ×3 (04:59→20:56)
[2021-10-30 06:18] LABS: Basophils % 0.2 % (0.0-0.8); Eosinophils # 0.1 10*3/uL (0.0-0.87); Eosinophils % 0.5 % (0.00-10.9); Hematocrit 29.6 VOL% (42.0-52.0); Hemoglobin 9.4 GM/DL (14.0-18.0); Immature Granulocytes % 1.3 %; Immature Granulocytes Absolute 0.14 #; Lymphocytes # 1.3 10*3/uL (1.4-4.0); Lymphocytes % 11.9 % (21.2-54.2); Mean Corpuscular HGB Conc 31.8 GM/DL (32-36); Mean Corpuscular Volume 91.4 FL (87-102); Mean Platelet Volume 10.2 FL (9.6-12.0); Monocytes # 0.4 10*3/uL (0.11-0.8); Monocytes % 3.1 % (1.7-12.7); Platelet Count 131 T/CUMM (130-400); Red Blood Count 3.24 MC/CUMM (3.8-5.5); Red Cell Distribution Width 17.2 % (9.3-17.3); White Blood Count 11.2 T/CUMM (4-12)
[2021-10-30 06:42] LABS: Hypochromia Slight; Lymphocytes 8 % (20-55); Microcytosis Slight; Platelet Estimate Normal; Total Cells Counted 100
[2021-10-30 06:45] LABS: Calcium 7.9 MG/DL (8.5-10.1); Osmolality,Calculated 337.2 MOS/KG (273-304)
[2021-10-30] MEDS: ACETYLCYSTEINE 20% 800 MG/4 ML VIAL RESP TX SCH ×2 (07:53→15:00)
[2021-10-30] MEDS: ALBUTEROL/IPRATROPIUM 3 ML NEB RESP TX SCH ×3 (07:53→23:50)
[2021-10-30] MEDS ORDERED: POTASSIUM CHLORIDE 20 MEQ TABLET PO SCH (09:00)
[2021-10-30] MEDS: INSULIN GLARGINE 100 UNIT/ML SUBCUT SCH (09:01)
[2021-10-30] MEDS: DOCUSATE SODIUM 100 MG CAPSULE PEG SCH ×2 (09:02→20:55)
[2021-10-30] MEDS: DESITIN 4OZ/NYSTATIN 15 GRAM MIXTURE PASTE TOP SCH ×2 (09:02→21:09)
[2021-10-30] MEDS: hydroCHLOROthiazide 25 MG TABLET PO SCH (09:02)
[2021-10-30] MEDS: CYANOCOBALAMIN 500 MCG TABLET PEG SCH (09:02)
[2021-10-30] MEDS ORDERED: DEXTROSE 5% 500 ML IV SCH (14:00)
[2021-10-30] MEDS ORDERED: POTASSIUM BICARB EFFERVESCENT 20 MEQ TAB.EFF PO ONE (17:00)
[2021-10-30] MEDS ORDERED: POTASSIUM CHLORIDE 20 MEQ TABLET PO ONE (17:00)
[2021-10-30 19:29] LABS: Calcium 8.2 MG/DL (8.5-10.1); Osmolality,Calculated 329.3 MOS/KG (273-304); Potassium 3.5 MMOL/L (3.5-5.1)
[2021-10-30] MEDS: FAMOTIDINE 20 MG TABLET PEG SCH (20:55)
[2021-10-30] MEDS: FINASTERIDE 5 MG TABLET PO SCH (20:55)
[2021-10-30] MEDS ORDERED: INSULIN GLARGINE 100 UNIT/ML SUBCUT SCH (21:00)
[2021-10-31] MEDS: ACETYLCYSTEINE 20% 800 MG/4 ML VIAL RESP TX SCH ×4 (00:09→23:19)
[2021-10-31] MEDS: INSULIN REGULAR 100 UNIT/ML SUBCUT SCH ×6 (00:11→21:33)
[2021-10-31] MEDS: CLINDAMYCIN INJ 300 MG/50 ML PREMIX IV SCH ×3 (00:16→18:12)
[2021-10-31] MEDS: DEXTROSE 10% 250 ML BAG IV PRN ×3 (02:28→08:11)
[2021-10-31 03:24] LABS: Basophils % 0.1 % (0.0-0.8); Eosinophils % 0.1 % (0.00-10.9); Hematocrit 30.3 VOL% (42.0-52.0); Hemoglobin 9.5 GM/DL (14.0-18.0); Immature Granulocytes % 1.1 %; Immature Granulocytes Absolute 0.15 #; Lymphocytes # 0.9 10*3/uL (1.4-4.0); Lymphocytes % 6.7 % (21.2-54.2); Mean Corpuscular HGB Conc 31.4 GM/DL (32-36); Mean Corpuscular Volume 92.9 FL (87-102); Monocytes # 0.4 10*3/uL (0.11-0.8); Monocytes % 3.1 % (1.7-12.7); Neutrophils % 88.9 % (38.7-73.9); Platelet Count 138 T/CUMM (130-400); Red Blood Count 3.26 MC/CUMM (3.8-5.5); Red Cell Distribution Width 17.4 % (9.3-17.3); White Blood Count 13.7 T/CUMM (4-12)
[2021-10-31 03:44] LABS: Eosinophils 1 % (0-10); Lymphocytes 4 % (20-55); Total Cells Counted 100
[2021-10-31 03:45] LABS: Calcium 7.6 MG/DL (8.5-10.1); Osmolality,Calculated 328.6 MOS/KG (273-304); Potassium 3.5 MMOL/L (3.5-5.1)
[2021-10-31 03:52] LABS: Phosphorous 2.1 MG/DL (2.5-4.9)
[2021-10-31] MEDS: PIPERACILLIN/TAZOBACTAM 3,375 MG in SODIUM CHLORIDE 0.9% 100 ML IV SCH ×3 (04:52→21:32)
[2021-10-31] MEDS: ALBUTEROL/IPRATROPIUM 3 ML NEB RESP TX SCH ×3 (07:26→23:19)
[2021-10-31] MEDS: INSULIN GLARGINE 100 UNIT/ML SUBCUT SCH (08:09)
[2021-10-31] MEDS: POTASSIUM BICARB EFFERVESCENT 20 MEQ TAB.EFF PEG SCH (09:29)
[2021-10-31] MEDS: CYANOCOBALAMIN 500 MCG TABLET PEG SCH (09:30)
[2021-10-31] MEDS: DOCUSATE SODIUM 100 MG CAPSULE PEG SCH ×2 (09:30→21:33)
[2021-10-31] MEDS: hydroCHLOROthiazide 25 MG TABLET PO SCH (09:30)
[2021-10-31] MEDS: DESITIN 4OZ/NYSTATIN 15 GRAM MIXTURE PASTE TOP SCH ×2 (09:43→21:33)
[2021-10-31] MEDS ORDERED: DEXTROSE 5% 1,000 ML IV SCH (12:30)
[2021-10-31] MEDS: FINASTERIDE 5 MG TABLET PO SCH (21:32)
[2021-10-31] MEDS: FAMOTIDINE 20 MG TABLET PEG SCH (21:33)
[2021-11-01] MEDS: INSULIN REGULAR 100 UNIT/ML SUBCUT SCH ×6 (00:22→22:01)
[2021-11-01] MEDS: CLINDAMYCIN INJ 300 MG/50 ML PREMIX IV SCH ×3 (01:44→17:43)
[2021-11-01] MEDS: PIPERACILLIN/TAZOBACTAM 3,375 MG in SODIUM CHLORIDE 0.9% 100 ML IV SCH (04:59)
[2021-11-01 06:40] LABS: Basophils % 0.2 % (0.0-0.8); Eosinophils # 0.1 10*3/uL (0.0-0.87); Eosinophils % 0.6 % (0.00-10.9); Hematocrit 28.9 VOL% (42.0-52.0); Hemoglobin 8.8 GM/DL (14.0-18.0); Immature Granulocytes % 1.4 %; Immature Granulocytes Absolute 0.18 #; Lymphocytes # 1.4 10*3/uL (1.4-4.0); Lymphocytes % 10.7 % (21.2-54.2); Mean Corpuscular HGB Conc 30.4 GM/DL (32-36); Mean Corpuscular Volume 94.8 FL (87-102); Mean Platelet Volume 11.4 FL (9.6-12.0); Monocytes # 0.4 10*3/uL (0.11-0.8); Monocytes % 3.4 % (1.7-12.7); Neutrophils % 83.7 % (38.7-73.9); Red Blood Count 3.05 MC/CUMM (3.8-5.5); Red Cell Distribution Width 17.5 % (9.3-17.3); White Blood Count 12.9 T/CUMM (4-12)
[2021-11-01 06:49] LABS: Platelet Count 104 T/CUMM (130-400)
[2021-11-01 06:59] LABS: Calcium 7.5 MG/DL (8.5-10.1); Osmolality,Calculated 311.7 MOS/KG (273-304); Potassium 4.4 MMOL/L (3.5-5.1)
[2021-11-01 07:01] LABS: Band Neutrophils 4 % (0-10); Eosinophils 1 % (0-10); Lymphocytes 12 % (20-55); Total Cells Counted 100
[2021-11-01 07:02] LABS: Hypochromia Slight; Microcytosis Slight; Ovalocytes Slight
[2021-11-01] MEDS: ALBUTEROL/IPRATROPIUM 3 ML NEB RESP TX SCH ×2 (07:41→15:35)
[2021-11-01] MEDS: ACETYLCYSTEINE 20% 800 MG/4 ML VIAL RESP TX SCH ×2 (07:41→15:35)
[2021-11-01] MEDS: DOCUSATE SODIUM 100 MG CAPSULE PEG SCH ×2 (09:19→22:01)
[2021-11-01] MEDS: DESITIN 4OZ/NYSTATIN 15 GRAM MIXTURE PASTE TOP SCH ×2 (09:20→22:04)
[2021-11-01] MEDS: POTASSIUM BICARB EFFERVESCENT 20 MEQ TAB.EFF PEG SCH (09:21)
[2021-11-01] MEDS: CYANOCOBALAMIN 500 MCG TABLET PEG SCH (09:23)
[2021-11-01] MEDS: INSULIN GLARGINE 100 UNIT/ML SUBCUT SCH (09:31)
[2021-11-01] MEDS: FAMOTIDINE 20 MG TABLET PEG SCH (22:01)
[2021-11-01] MEDS: FINASTERIDE 5 MG TABLET PO SCH (22:02)
[2021-11-02] MEDS: ACETYLCYSTEINE 20% 800 MG/4 ML VIAL RESP TX SCH ×4 (00:06→23:42)
[2021-11-02] MEDS: INSULIN REGULAR 100 UNIT/ML SUBCUT SCH ×6 (01:02→21:02)
[2021-11-02] MEDS: CLINDAMYCIN INJ 300 MG/50 ML PREMIX IV SCH ×3 (01:03→17:04)
[2021-11-02 06:00] LABS: Basophils % 0.2 % (0.0-0.8); Eosinophils % 0.4 % (0.00-10.9); Hematocrit 27.9 VOL% (42.0-52.0); Hemoglobin 8.7 GM/DL (14.0-18.0); Immature Granulocytes % 1.4 %; Immature Granulocytes Absolute 0.15 #; Lymphocytes # 1.3 10*3/uL (1.4-4.0); Lymphocytes % 12.2 % (21.2-54.2); Mean Corpuscular HGB Conc 31.2 GM/DL (32-36); Mean Platelet Volume 11.5 FL (9.6-12.0); Monocytes # 0.3 10*3/uL (0.11-0.8); Monocytes % 3.1 % (1.7-12.7); Neutrophils % 82.7 % (38.7-73.9); Platelet Count 117 T/CUMM (130-400); White Blood Count 10.7 T/CUMM (4-12)
[2021-11-02 06:29] LABS: Albumin 1.7 G/DL (3.4-5.0); Calcium 7.3 MG/DL (8.5-10.1); Osmolality,Calculated 321.8 MOS/KG (273-304); Potassium 4.6 MMOL/L (3.5-5.1); Total Protein 5.6 G/DL (6.4-8.2)
[2021-11-02] MEDS: ALBUTEROL/IPRATROPIUM 3 ML NEB RESP TX SCH ×4 (06:50→23:42)
[2021-11-02 07:10] LABS: Band Neutrophils 3 % (0-10); Eosinophils 1 % (0-10); Lymphocytes 10 % (20-55); Total Cells Counted 100
[2021-11-02 07:11] LABS: Hypochromia Slight; Microcytosis Slight; Ovalocytes Slight
[2021-11-02 07:12] LABS: Acanthocytes Few
[2021-11-02] MEDS: POTASSIUM BICARB EFFERVESCENT 20 MEQ TAB.EFF PEG SCH (08:40)
[2021-11-02] MEDS: CYANOCOBALAMIN 500 MCG TABLET PEG SCH (08:45)
[2021-11-02] MEDS: DESITIN 4OZ/NYSTATIN 15 GRAM MIXTURE PASTE TOP SCH ×2 (08:45→20:42)
[2021-11-02] MEDS: DOCUSATE SODIUM 100 MG CAPSULE PEG SCH ×2 (08:46→20:42)
[2021-11-02] MEDS: INSULIN GLARGINE 100 UNIT/ML SUBCUT SCH (08:56)
[2021-11-02] MEDS: FAMOTIDINE 20 MG TABLET PEG SCH (20:42)
[2021-11-02] MEDS: FINASTERIDE 5 MG TABLET PO SCH (20:42)
[2021-11-03] MEDS: CLINDAMYCIN INJ 300 MG/50 ML PREMIX IV SCH ×3 (00:15→16:00)
[2021-11-03] MEDS: INSULIN REGULAR 100 UNIT/ML SUBCUT SCH ×6 (00:33→20:23)
[2021-11-03] MEDS: ALBUTEROL/IPRATROPIUM 3 ML NEB RESP TX SCH ×3 (07:35→22:45)
[2021-11-03] MEDS: ACETYLCYSTEINE 20% 800 MG/4 ML VIAL RESP TX SCH ×3 (07:35→22:55)
[2021-11-03] MEDS: DOCUSATE SODIUM 100 MG CAPSULE PEG SCH ×2 (08:45→20:23)
[2021-11-03] MEDS: POTASSIUM BICARB EFFERVESCENT 20 MEQ TAB.EFF PEG SCH (08:45)
[2021-11-03] MEDS: DESITIN 4OZ/NYSTATIN 15 GRAM MIXTURE PASTE TOP SCH ×2 (08:46→20:23)
[2021-11-03] MEDS: INSULIN GLARGINE 100 UNIT/ML SUBCUT SCH (08:46)
[2021-11-03] MEDS: CYANOCOBALAMIN 500 MCG TABLET PEG SCH (08:47)
[2021-11-03] MEDS: FAMOTIDINE 20 MG TABLET PEG SCH (20:23)
[2021-11-03] MEDS: FINASTERIDE 5 MG TABLET PO SCH (20:23)
[2021-11-04] MEDS: CLINDAMYCIN INJ 300 MG/50 ML PREMIX IV SCH (00:33)
[2021-11-04] MEDS: INSULIN REGULAR 100 UNIT/ML SUBCUT SCH ×4 (00:33→13:26)
[2021-11-04 05:45] LABS: Phosphorous 3.5 MG/DL (2.5-4.9)
[2021-11-04] MEDS: ALBUTEROL/IPRATROPIUM 3 ML NEB RESP TX SCH ×2 (07:02→15:19)
[2021-11-04] MEDS: ACETYLCYSTEINE 20% 800 MG/4 ML VIAL RESP TX SCH ×2 (07:02→15:19)
[2021-11-04] MEDS: CYANOCOBALAMIN 500 MCG TABLET PEG SCH (10:52)
[2021-11-04] MEDS: DOCUSATE SODIUM 100 MG CAPSULE PEG SCH (10:53)
[2021-11-04] MEDS: POTASSIUM BICARB EFFERVESCENT 20 MEQ TAB.EFF PEG SCH (10:53)
[2021-11-04] MEDS: INSULIN GLARGINE 100 UNIT/ML SUBCUT SCH (10:53)
[2021-11-04] MEDS: DESITIN 4OZ/NYSTATIN 15 GRAM MIXTURE PASTE TOP SCH (10:54)
[2021-11-04] MEDS ORDERED: TUBERCULIN SKIN TEST 0.1 ML SYRINGE INTRADERM ONE (11:00)
[2021-11-04 12:27] VITALS: BP 136/70
== END 2021-11-04 15:33 | DRG 177 ==
LOC: N.ED 15:48 → N.EDINP 18:23 → N.CC 22:26 → N.5E 10-26 13:11
PROVIDERS: ADMIT Internal Medicine; ATTEND Internal Medicine
PROC: EGDWPEG (ICD-10-PCS; 2021-10-28 10:35)